=== PATIENT | male | born 1950 | race Caucasian/White ===

== ENCOUNTER 2023-07-17 12:20 | Inpatient (IN) | payer MEDICARE, MEDICAID ==
[2023-07-17] MEDS ORDERED: Psyllium with Sucrose Powder 3.4 GM Packet PO PRN (17:00)
[2023-07-17 17:11] LABS: APPEARANCE,URINE SLIGHTLY CLOUDY (CLEAR); BILIRUBIN,URINE NEGATIVE (NEGATIVE); GLUCOSE,URINE NEGATIVE (NEGATIVE); KETONES,URINE NEGATIVE (NEGATIVE); LEUKOCYTE ESTERASE,URINE LARGE (NEGATIVE); NITRITE,URINE NEGATIVE (NEGATIVE); OCCULT BLOOD,URINE TRACE-INTACT (NEGATIVE); PROTEIN,URINE TRACE mg/dL (NEGATIVE); UROBILINOGEN,URINE 0.2 E.U./dL (0.2-1.0)
[2023-07-17 17:13] LABS: COLOR,URINE YELLOW
[2023-07-17 17:14] LABS: RBC,URINE >100 /HPF; WBC,URINE >100 /HPF
[2023-07-17] MEDS ORDERED: 50% Dextrose in Water 50 ML Syringe IVPUSH PRN (17:58)
[2023-07-17] MEDS ORDERED: Glucagon,Human Recombinant 1 MG Vial IM PRN (17:58)
[2023-07-17] MEDS ORDERED: Zinc Oxide 20% Oint 56.7 GM Tube TOP PRN (18:00)
[2023-07-17] MEDS ORDERED: CALAZIME PASTE TOP PRN (18:11)
[2023-07-17] MEDS ORDERED: ZINC OXIDE 20% TOP PRN (18:13)
[2023-07-17] MEDS ORDERED: [UNRECOGNIZED DRUG - OTHER] TOP PRN (18:15)
[2023-07-17] MEDS: metFORMIN 500 MG Tab PO SCH (18:33)
[2023-07-17] MEDS: Acetaminophen/HYDROcodone 325-5 MG Tab PO PRN (18:34)
[2023-07-17] MEDS: Tamsulosin 0.4 MG Cap.ER PO SCH (20:05)
[2023-07-17] MEDS: Calcium Carbonate/Vitamin D3 600 MG-200 Units Tab PO SCH (20:05)
[2023-07-17] MEDS: rOPINIRole 0.25 MG Tab PO SCH (20:05)
[2023-07-17] MEDS: Pregabalin 75 MG Cap PO SCH (20:06)
[2023-07-17] MEDS: atorvaSTATin 40 MG Tab PO SCH (20:08)
[2023-07-17] MEDS: Insulin Glargine,Human Rec. Analog 100 Units/ML 3 ML Pen SUBCUT SCH (20:10)
[2023-07-17] MEDS: SODIUM HYPOCHLORITE 0.25% TOP PRN (21:00)
[2023-07-18] MEDS: Aspirin 81 MG Tab.EC PO SCH (07:57)
[2023-07-18] MEDS: Metoprolol Succinate 50 MG Tab.ER PO SCH (07:58)
[2023-07-18] MEDS: Magnesium Oxide 400 MG Tab PO SCH (07:58)
[2023-07-18] MEDS: Acetaminophen/HYDROcodone 325-5 MG Tab PO PRN ×2 (07:58→22:06)
[2023-07-18] MEDS: Pregabalin 75 MG Cap PO SCH ×2 (07:59→20:18)
[2023-07-18] MEDS: Docusate Sodium 100 MG Cap PO SCH (07:59)
[2023-07-18] MEDS: Calcium Carbonate/Vitamin D3 600 MG-200 Units Tab PO SCH ×2 (08:00→20:19)
[2023-07-18] MEDS: Ascorbic Acid 500 MG Tab PO SCH (08:00)
[2023-07-18] MEDS: metFORMIN 500 MG Tab PO SCH ×2 (08:00→17:14)
[2023-07-18] MEDS: Multivitamins with Iron/Calcium/Folic Acid/Minerals Tab PO SCH (08:00)
[2023-07-18] MEDS: Chlorthalidone 25 MG Tab PO SCH (08:52)
[2023-07-18] MEDS: CALCIUM PO SCH (08:52)
[2023-07-18] MEDS: CRANBERRY FRUIT PO SCH (08:52)
[2023-07-18] MEDS ORDERED: Cyanocobalamin (Vitamin B12) 1,000 MCG/ML SDV IM SCH (11:00)
[2023-07-18] MEDS: Insulin Glargine,Human Rec. Analog 100 Units/ML 3 ML Pen SUBCUT SCH (20:10)
[2023-07-18] MEDS: Tamsulosin 0.4 MG Cap.ER PO SCH (20:17)
[2023-07-18] MEDS: atorvaSTATin 40 MG Tab PO SCH (20:17)
[2023-07-18] MEDS: rOPINIRole 0.25 MG Tab PO SCH (20:18)
[2023-07-19] MEDS: Aspirin 81 MG Tab.EC PO SCH (08:07)
[2023-07-19] MEDS: Docusate Sodium 100 MG Cap PO SCH (08:07)
[2023-07-19] MEDS: Metoprolol Succinate 50 MG Tab.ER PO SCH (08:08)
[2023-07-19] MEDS: metFORMIN 500 MG Tab PO SCH ×2 (08:08→16:53)
[2023-07-19] MEDS: Multivitamins with Iron/Calcium/Folic Acid/Minerals Tab PO SCH (08:08)
[2023-07-19] MEDS: Pregabalin 75 MG Cap PO SCH ×2 (08:09→20:07)
[2023-07-19] MEDS: Magnesium Oxide 400 MG Tab PO SCH (08:09)
[2023-07-19] MEDS: Calcium Carbonate/Vitamin D3 600 MG-200 Units Tab PO SCH ×2 (08:09→20:09)
[2023-07-19] MEDS: Ascorbic Acid 500 MG Tab PO SCH (08:09)
[2023-07-19] MEDS: CALCIUM PO SCH (08:09)
[2023-07-19] MEDS: CRANBERRY FRUIT PO SCH (08:09)
[2023-07-19] MEDS: Chlorthalidone 25 MG Tab PO SCH (08:10)
[2023-07-19] MEDS: atorvaSTATin 40 MG Tab PO SCH (20:07)
[2023-07-19] MEDS: rOPINIRole 0.25 MG Tab PO SCH (20:08)
[2023-07-19] MEDS: Insulin Glargine,Human Rec. Analog 100 Units/ML 3 ML Pen SUBCUT SCH (20:08)
[2023-07-19] MEDS: Tamsulosin 0.4 MG Cap.ER PO SCH (20:08)
[2023-07-19] MEDS: Acetaminophen/HYDROcodone 325-5 MG Tab PO PRN (20:12)
[2023-07-19] MEDS: SODIUM HYPOCHLORITE 0.25% TOP PRN (20:13)
[2023-07-20] MEDS: Aspirin 81 MG Tab.EC PO SCH (08:16)
[2023-07-20] MEDS: Docusate Sodium 100 MG Cap PO SCH (08:16)
[2023-07-20] MEDS: Calcium Carbonate/Vitamin D3 600 MG-200 Units Tab PO SCH ×2 (08:17→19:59)
[2023-07-20] MEDS: Metoprolol Succinate 50 MG Tab.ER PO SCH (08:17)
[2023-07-20] MEDS: metFORMIN 500 MG Tab PO SCH ×2 (08:17→16:51)
[2023-07-20] MEDS: Multivitamins with Iron/Calcium/Folic Acid/Minerals Tab PO SCH (08:18)
[2023-07-20] MEDS: Pregabalin 75 MG Cap PO SCH ×2 (08:18→19:59)
[2023-07-20] MEDS: Ascorbic Acid 500 MG Tab PO SCH (08:18)
[2023-07-20] MEDS: Magnesium Oxide 400 MG Tab PO SCH (08:18)
[2023-07-20] MEDS: CRANBERRY FRUIT PO SCH (08:23)
[2023-07-20] MEDS: Chlorthalidone 25 MG Tab PO SCH (08:23)
[2023-07-20] MEDS: CALCIUM PO SCH (08:23)
[2023-07-20] MEDS: Acetaminophen/HYDROcodone 325-5 MG Tab PO PRN ×2 (09:19→19:58)
[2023-07-20] MEDS: rOPINIRole 0.25 MG Tab PO SCH (19:58)
[2023-07-20] MEDS: Tamsulosin 0.4 MG Cap.ER PO SCH (19:58)
[2023-07-20] MEDS: atorvaSTATin 40 MG Tab PO SCH (19:59)
[2023-07-20] MEDS: Insulin Glargine,Human Rec. Analog 100 Units/ML 3 ML Pen SUBCUT SCH (20:00)
[2023-07-20] MEDS: SODIUM HYPOCHLORITE 0.25% TOP PRN (21:17)
[2023-07-21] MEDS: Aspirin 81 MG Tab.EC PO SCH (07:39)
[2023-07-21] MEDS: Magnesium Oxide 400 MG Tab PO SCH (07:39)
[2023-07-21] MEDS: Docusate Sodium 100 MG Cap PO SCH (07:39)
[2023-07-21] MEDS: Multivitamins with Iron/Calcium/Folic Acid/Minerals Tab PO SCH (07:39)
[2023-07-21] MEDS: metFORMIN 500 MG Tab PO SCH ×2 (07:40→16:41)
[2023-07-21] MEDS: Ascorbic Acid 500 MG Tab PO SCH (07:40)
[2023-07-21] MEDS: Calcium Carbonate/Vitamin D3 600 MG-200 Units Tab PO SCH ×2 (07:40→20:19)
[2023-07-21] MEDS: CALCIUM PO SCH (07:41)
[2023-07-21] MEDS: Metoprolol Succinate 50 MG Tab.ER PO SCH (07:41)
[2023-07-21] MEDS: Chlorthalidone 25 MG Tab PO SCH (07:41)
[2023-07-21] MEDS: CRANBERRY FRUIT PO SCH (07:41)
[2023-07-21] MEDS: Pregabalin 75 MG Cap PO SCH ×2 (07:41→20:18)
[2023-07-21] MEDS: Acetaminophen/HYDROcodone 325-5 MG Tab PO PRN ×2 (10:08→20:21)
[2023-07-21] MEDS: Tamsulosin 0.4 MG Cap.ER PO SCH (20:17)
[2023-07-21] MEDS: rOPINIRole 0.25 MG Tab PO SCH (20:17)
[2023-07-21] MEDS: atorvaSTATin 40 MG Tab PO SCH (20:18)
[2023-07-21] MEDS: Insulin Glargine,Human Rec. Analog 100 Units/ML 3 ML Pen SUBCUT SCH (20:19)
[2023-07-21] MEDS: SODIUM HYPOCHLORITE 0.25% TOP PRN (22:23)
[2023-07-22] MEDS: Docusate Sodium 100 MG Cap PO SCH (07:59)
[2023-07-22] MEDS: metFORMIN 500 MG Tab PO SCH ×2 (07:59→17:14)
[2023-07-22] MEDS: Aspirin 81 MG Tab.EC PO SCH (07:59)
[2023-07-22] MEDS: Pregabalin 75 MG Cap PO SCH ×2 (07:59→20:05)
[2023-07-22] MEDS: Metoprolol Succinate 50 MG Tab.ER PO SCH (07:59)
[2023-07-22] MEDS: Calcium Carbonate/Vitamin D3 600 MG-200 Units Tab PO SCH ×2 (07:59→20:04)
[2023-07-22] MEDS: Ascorbic Acid 500 MG Tab PO SCH (08:00)
[2023-07-22] MEDS: Magnesium Oxide 400 MG Tab PO SCH (08:00)
[2023-07-22] MEDS: Multivitamins with Iron/Calcium/Folic Acid/Minerals Tab PO SCH (08:00)
[2023-07-22] MEDS: CALCIUM PO SCH (08:02)
[2023-07-22] MEDS: CRANBERRY FRUIT PO SCH (08:02)
[2023-07-22] MEDS: Chlorthalidone 25 MG Tab PO SCH (08:02)
[2023-07-22] MEDS: Acetaminophen/HYDROcodone 325-5 MG Tab PO PRN (09:41)
[2023-07-22] MEDS ORDERED: Ciprofloxacin 500 MG Tab PO SCH (12:15)
[2023-07-22] MEDS: Cephalexin 500 MG Cap PO SCH ×2 (12:53→20:05)
[2023-07-22] MEDS: atorvaSTATin 40 MG Tab PO SCH (20:00)
[2023-07-22] MEDS: Tamsulosin 0.4 MG Cap.ER PO SCH (20:04)
[2023-07-22] MEDS: rOPINIRole 0.25 MG Tab PO SCH (20:04)
[2023-07-22] MEDS: Insulin Glargine,Human Rec. Analog 100 Units/ML 3 ML Pen SUBCUT SCH (20:06)
[2023-07-23] MEDS: Calcium Carbonate/Vitamin D3 600 MG-200 Units Tab PO SCH ×2 (09:15→19:42)
[2023-07-23] MEDS: Lactobacillus Acidophilus/Lactobacillus Sporogenes (Probiotic) Tab PO SCH (09:15)
[2023-07-23] MEDS: Cephalexin 500 MG Cap PO SCH ×2 (09:16→19:41)
[2023-07-23] MEDS: Docusate Sodium 100 MG Cap PO SCH (09:16)
[2023-07-23] MEDS: metFORMIN 500 MG Tab PO SCH ×2 (09:16→17:24)
[2023-07-23] MEDS: Chlorthalidone 25 MG Tab PO SCH (09:16)
[2023-07-23] MEDS: Aspirin 81 MG Tab.EC PO SCH (09:16)
[2023-07-23] MEDS: Pregabalin 75 MG Cap PO SCH ×2 (09:17→19:42)
[2023-07-23] MEDS: Metoprolol Succinate 50 MG Tab.ER PO SCH (09:17)
[2023-07-23] MEDS: Magnesium Oxide 400 MG Tab PO SCH (09:17)
[2023-07-23] MEDS: Ascorbic Acid 500 MG Tab PO SCH (09:17)
[2023-07-23] MEDS: Multivitamins with Iron/Calcium/Folic Acid/Minerals Tab PO SCH (09:17)
[2023-07-23] MEDS: Insulin Glargine,Human Rec. Analog 100 Units/ML 3 ML Pen SUBCUT SCH (19:37)
[2023-07-23] MEDS: rOPINIRole 0.25 MG Tab PO SCH (19:41)
[2023-07-23] MEDS: Tamsulosin 0.4 MG Cap.ER PO SCH (19:42)
[2023-07-23] MEDS: atorvaSTATin 40 MG Tab PO SCH (19:42)
[2023-07-23] MEDS: Acetaminophen/HYDROcodone 325-5 MG Tab PO PRN (19:44)
[2023-07-23] MEDS: SODIUM HYPOCHLORITE 0.25% TOP PRN (22:22)
[2023-07-24] MEDS: Chlorthalidone 25 MG Tab PO SCH (08:25)
[2023-07-24] MEDS: Multivitamins with Iron/Calcium/Folic Acid/Minerals Tab PO SCH (08:25)
[2023-07-24] MEDS: Docusate Sodium 100 MG Cap PO SCH (08:25)
[2023-07-24] MEDS: Metoprolol Succinate 50 MG Tab.ER PO SCH (08:25)
[2023-07-24] MEDS: metFORMIN 500 MG Tab PO SCH ×2 (08:26→17:45)
[2023-07-24] MEDS: Aspirin 81 MG Tab.EC PO SCH (08:26)
[2023-07-24] MEDS: Calcium Carbonate/Vitamin D3 600 MG-200 Units Tab PO SCH ×2 (08:27→20:22)
[2023-07-24] MEDS: Magnesium Oxide 400 MG Tab PO SCH (08:27)
[2023-07-24] MEDS: Ascorbic Acid 500 MG Tab PO SCH (08:27)
[2023-07-24] MEDS: Pregabalin 75 MG Cap PO SCH ×2 (08:27→20:23)
[2023-07-24] MEDS: Lactobacillus Acidophilus/Lactobacillus Sporogenes (Probiotic) Tab PO SCH (08:28)
[2023-07-24] MEDS: Cephalexin 500 MG Cap PO SCH (08:28)
[2023-07-24] MEDS: Acetaminophen/HYDROcodone 325-5 MG Tab PO PRN ×2 (08:30→20:23)
[2023-07-24] MEDS: Amoxicillin 500 MG Cap PO SCH ×2 (14:20→20:23)
[2023-07-24] MEDS ORDERED: Ciprofloxacin 250 MG Tab PO SCH (20:00)
[2023-07-24] MEDS: atorvaSTATin 40 MG Tab PO SCH (20:22)
[2023-07-24] MEDS: Tamsulosin 0.4 MG Cap.ER PO SCH (20:23)
[2023-07-24] MEDS: rOPINIRole 0.25 MG Tab PO SCH (20:23)
[2023-07-24] MEDS: Insulin Glargine,Human Rec. Analog 100 Units/ML 3 ML Pen SUBCUT SCH (20:24)
[2023-07-25] MEDS: Ascorbic Acid 500 MG Tab PO SCH (08:01)
[2023-07-25] MEDS: Multivitamins with Iron/Calcium/Folic Acid/Minerals Tab PO SCH (08:02)
[2023-07-25] MEDS: Amoxicillin 500 MG Cap PO SCH ×3 (08:02→20:31)
[2023-07-25] MEDS: Pregabalin 75 MG Cap PO SCH ×2 (08:02→20:31)
[2023-07-25] MEDS: Chlorthalidone 25 MG Tab PO SCH (08:03)
[2023-07-25] MEDS: Calcium Carbonate/Vitamin D3 600 MG-200 Units Tab PO SCH ×2 (08:03→20:43)
[2023-07-25] MEDS: Metoprolol Succinate 50 MG Tab.ER PO SCH (08:03)
[2023-07-25] MEDS: metFORMIN 500 MG Tab PO SCH ×2 (08:04→17:31)
[2023-07-25] MEDS: Lactobacillus Acidophilus/Lactobacillus Sporogenes (Probiotic) Tab PO SCH (08:04)
[2023-07-25] MEDS: Docusate Sodium 100 MG Cap PO SCH (08:05)
[2023-07-25] MEDS: Aspirin 81 MG Tab.EC PO SCH (08:05)
[2023-07-25] MEDS: Magnesium Oxide 400 MG Tab PO SCH (08:05)
[2023-07-25] MEDS ORDERED: Menthol/Zinc Oxide Ointment 113 GM Tube TOP ONE (15:05)
[2023-07-25] MEDS: Tamsulosin 0.4 MG Cap.ER PO SCH (20:30)
[2023-07-25] MEDS: atorvaSTATin 40 MG Tab PO SCH (20:31)
[2023-07-25] MEDS: rOPINIRole 0.25 MG Tab PO SCH (20:31)
[2023-07-25] MEDS: Acetaminophen/HYDROcodone 325-5 MG Tab PO PRN (20:33)
[2023-07-25] MEDS: Insulin Glargine,Human Rec. Analog 100 Units/ML 3 ML Pen SUBCUT SCH (20:39)
[2023-07-26] MEDS: Acetaminophen/HYDROcodone 325-5 MG Tab PO PRN ×2 (09:00→17:01)
[2023-07-26] MEDS: Calcium Carbonate/Vitamin D3 600 MG-200 Units Tab PO SCH (09:41)
[2023-07-26] MEDS: Aspirin 81 MG Tab.EC PO SCH (09:41)
[2023-07-26] MEDS: Pregabalin 75 MG Cap PO SCH ×2 (09:42→21:15)
[2023-07-26] MEDS: Chlorthalidone 25 MG Tab PO SCH (09:42)
[2023-07-26] MEDS: Magnesium Oxide 400 MG Tab PO SCH (09:42)
[2023-07-26] MEDS: Multivitamins with Iron/Calcium/Folic Acid/Minerals Tab PO SCH (09:42)
[2023-07-26] MEDS: metFORMIN 500 MG Tab PO SCH ×2 (09:42→17:07)
[2023-07-26] MEDS: Metoprolol Succinate 50 MG Tab.ER PO SCH (09:42)
[2023-07-26] MEDS: Lactobacillus Acidophilus/Lactobacillus Sporogenes (Probiotic) Tab PO SCH (09:42)
[2023-07-26] MEDS: Docusate Sodium 100 MG Cap PO SCH (09:42)
[2023-07-26] MEDS: Amoxicillin 500 MG Cap PO SCH ×3 (09:42→21:21)
[2023-07-26] MEDS: Ascorbic Acid 500 MG Tab PO SCH (09:43)
[2023-07-26 10:13] LABS: HEMATOCRIT 28.4 % (40.0-54.0); HEMOGLOBIN 8.7 g/dL (13.0-18.0); MEAN CORPUSCULAR HEMOGLOBIN 24.4 pg (27.0-32.0); MEAN CORPUSCULAR HGB CONC 30.6 g/dL (31.0-35.0); MEAN CORPUSCULAR VOLUME 80 fL (76-96); PLATELET COUNT,PLT 203 K/uL (150-400); RED BLOOD CELL COUNT 3.57 M/uL (4.50-6.50); WHITE BLOOD CELL COUNT,WBC 6.9 K/uL (4.0-11.0)
[2023-07-26 10:27] LABS: ANION GAP 12.4 mmol/L (5.0-15.0); BUN/CREATININE RATIO 21.2 (6-25); CALCIUM 9.1 mg/dL (8.5-10.1); CARBON DIOXIDE,CO2 29.2 mmol/L (21.0-32.0); CREATININE 1.32 mg/dL (0.70-1.30); EST CRCL DRUG DOSING (CG) 58.81 mL/min; POTASSIUM,K 4.6 mmol/L (3.5-5.1)
[2023-07-26] MEDS: SODIUM HYPOCHLORITE 0.25% TOP PRN (17:01)
[2023-07-26] MEDS: Insulin Glargine,Human Rec. Analog 100 Units/ML 3 ML Pen SUBCUT SCH (21:12)
[2023-07-26] MEDS: Calcium Carbonate/Vitamin D3 1500 MG-400 Units Tab PO SCH (21:14)
[2023-07-26] MEDS: Tamsulosin 0.4 MG Cap.ER PO SCH (21:14)
[2023-07-26] MEDS: rOPINIRole 0.25 MG Tab PO SCH (21:14)
[2023-07-26] MEDS: atorvaSTATin 40 MG Tab PO SCH (21:15)
[2023-07-27] MEDS: Lactobacillus Acidophilus/Lactobacillus Sporogenes (Probiotic) Tab PO SCH (07:29)
[2023-07-27] MEDS: Amoxicillin 500 MG Cap PO SCH ×3 (07:29→20:00)
[2023-07-27] MEDS: Aspirin 81 MG Tab.EC PO SCH (07:30)
[2023-07-27] MEDS: metFORMIN 500 MG Tab PO SCH ×2 (07:30→18:00)
[2023-07-27] MEDS: Magnesium Oxide 400 MG Tab PO SCH (07:30)
[2023-07-27] MEDS: Calcium Carbonate/Vitamin D3 1500 MG-400 Units Tab PO SCH ×2 (07:30→20:00)
[2023-07-27] MEDS: Pregabalin 75 MG Cap PO SCH ×2 (07:30→20:00)
[2023-07-27] MEDS: Docusate Sodium 100 MG Cap PO SCH (07:30)
[2023-07-27] MEDS: Chlorthalidone 25 MG Tab PO SCH (07:30)
[2023-07-27] MEDS: Multivitamins with Iron/Calcium/Folic Acid/Minerals Tab PO SCH (07:31)
[2023-07-27] MEDS: Ascorbic Acid 500 MG Tab PO SCH (07:31)
[2023-07-27] MEDS: Metoprolol Succinate 50 MG Tab.ER PO SCH (07:43)
[2023-07-27] MEDS: SODIUM HYPOCHLORITE 0.25% TOP PRN (12:59)
[2023-07-27] MEDS: Insulin Glargine,Human Rec. Analog 100 Units/ML 3 ML Pen SUBCUT SCH (19:58)
[2023-07-27] MEDS: Tamsulosin 0.4 MG Cap.ER PO SCH (19:59)
[2023-07-27] MEDS: rOPINIRole 0.25 MG Tab PO SCH (19:59)
[2023-07-27] MEDS: atorvaSTATin 40 MG Tab PO SCH (20:00)
[2023-07-28] MEDS: Aspirin 81 MG Tab.EC PO SCH (08:00)
[2023-07-28] MEDS: Amoxicillin 500 MG Cap PO SCH ×3 (08:44→20:52)
[2023-07-28] MEDS: Magnesium Oxide 400 MG Tab PO SCH (08:45)
[2023-07-28] MEDS: Calcium Carbonate/Vitamin D3 1500 MG-400 Units Tab PO SCH ×2 (08:45→20:52)
[2023-07-28] MEDS: Docusate Sodium 100 MG Cap PO SCH (08:45)
[2023-07-28] MEDS: metFORMIN 500 MG Tab PO SCH ×2 (08:47→17:19)
[2023-07-28] MEDS: Metoprolol Succinate 50 MG Tab.ER PO SCH (08:48)
[2023-07-28] MEDS: Ascorbic Acid 500 MG Tab PO SCH (08:49)
[2023-07-28] MEDS: Pregabalin 75 MG Cap PO SCH ×2 (08:50→20:52)
[2023-07-28] MEDS: Lactobacillus Acidophilus/Lactobacillus Sporogenes (Probiotic) Tab PO SCH (08:50)
[2023-07-28] MEDS: Multivitamins with Iron/Calcium/Folic Acid/Minerals Tab PO SCH (08:50)
[2023-07-28] MEDS: Chlorthalidone 25 MG Tab PO SCH (08:51)
[2023-07-28] MEDS: Acetaminophen/HYDROcodone 325-5 MG Tab PO PRN (13:46)
[2023-07-28] MEDS: atorvaSTATin 40 MG Tab PO SCH (20:51)
[2023-07-28] MEDS: rOPINIRole 0.25 MG Tab PO SCH (20:51)
[2023-07-28] MEDS: Tamsulosin 0.4 MG Cap.ER PO SCH (20:52)
[2023-07-28] MEDS: Insulin Glargine,Human Rec. Analog 100 Units/ML 3 ML Pen SUBCUT SCH (20:54)
[2023-07-29] MEDS: Calcium Carbonate/Vitamin D3 1500 MG-400 Units Tab PO SCH ×2 (07:38→20:27)
[2023-07-29] MEDS: Amoxicillin 500 MG Cap PO SCH ×3 (07:38→20:26)
[2023-07-29] MEDS: Aspirin 81 MG Tab.EC PO SCH (07:38)
[2023-07-29] MEDS: Chlorthalidone 25 MG Tab PO SCH (07:38)
[2023-07-29] MEDS: Pregabalin 75 MG Cap PO SCH ×2 (07:38→20:27)
[2023-07-29] MEDS: metFORMIN 500 MG Tab PO SCH ×2 (07:38→17:18)
[2023-07-29] MEDS: Lactobacillus Acidophilus/Lactobacillus Sporogenes (Probiotic) Tab PO SCH (07:38)
[2023-07-29] MEDS: Ascorbic Acid 500 MG Tab PO SCH (07:38)
[2023-07-29] MEDS: Metoprolol Succinate 50 MG Tab.ER PO SCH (07:38)
[2023-07-29] MEDS: Multivitamins with Iron/Calcium/Folic Acid/Minerals Tab PO SCH (07:39)
[2023-07-29] MEDS: Magnesium Oxide 400 MG Tab PO SCH (07:39)
[2023-07-29] MEDS: Docusate Sodium 100 MG Cap PO SCH (07:39)
[2023-07-29] MEDS: Polyethylene Glycol 3350 Powder 17 GM Packet PO PRN (10:43)
[2023-07-29] MEDS: Acetaminophen/HYDROcodone 325-5 MG Tab PO PRN (18:15)
[2023-07-29] MEDS: Tamsulosin 0.4 MG Cap.ER PO SCH (20:26)
[2023-07-29] MEDS: rOPINIRole 0.25 MG Tab PO SCH (20:26)
[2023-07-29] MEDS: atorvaSTATin 40 MG Tab PO SCH (20:26)
[2023-07-29] MEDS: Insulin Glargine,Human Rec. Analog 100 Units/ML 3 ML Pen SUBCUT SCH (20:28)
[2023-07-30] MEDS: Aspirin 81 MG Tab.EC PO SCH (08:45)
[2023-07-30] MEDS: metFORMIN 500 MG Tab PO SCH ×2 (08:45→16:47)
[2023-07-30] MEDS: Docusate Sodium 100 MG Cap PO SCH (08:45)
[2023-07-30] MEDS: Calcium Carbonate/Vitamin D3 1500 MG-400 Units Tab PO SCH ×2 (08:45→19:09)
[2023-07-30] MEDS: Ascorbic Acid 500 MG Tab PO SCH (08:45)
[2023-07-30] MEDS: Magnesium Oxide 400 MG Tab PO SCH (08:45)
[2023-07-30] MEDS: Pregabalin 75 MG Cap PO SCH ×2 (08:46→19:09)
[2023-07-30] MEDS: Lactobacillus Acidophilus/Lactobacillus Sporogenes (Probiotic) Tab PO SCH (08:47)
[2023-07-30] MEDS: Metoprolol Succinate 50 MG Tab.ER PO SCH (08:47)
[2023-07-30] MEDS: Multivitamins with Iron/Calcium/Folic Acid/Minerals Tab PO SCH (08:47)
[2023-07-30] MEDS: Chlorthalidone 25 MG Tab PO SCH (08:48)
[2023-07-30] MEDS: Acetaminophen/HYDROcodone 325-5 MG Tab PO PRN ×2 (11:45→19:10)
[2023-07-30] MEDS: Levofloxacin 500 MG Tab PO SCH (15:19)
[2023-07-30] MEDS ORDERED: Doxycycline 100 MG Cap PO ONE (15:20)
[2023-07-30] MEDS: Tamsulosin 0.4 MG Cap.ER PO SCH (19:09)
[2023-07-30] MEDS: Doxycycline 100 MG Cap PO SCH (19:09)
[2023-07-30] MEDS: atorvaSTATin 40 MG Tab PO SCH (19:09)
[2023-07-30] MEDS: rOPINIRole 0.25 MG Tab PO SCH (19:09)
[2023-07-30] MEDS: Insulin Glargine,Human Rec. Analog 100 Units/ML 3 ML Pen SUBCUT SCH (19:12)
[2023-07-31] MEDS: Lactobacillus Acidophilus/Lactobacillus Sporogenes (Probiotic) Tab PO SCH (07:41)
[2023-07-31] MEDS: Magnesium Oxide 400 MG Tab PO SCH (07:41)
[2023-07-31] MEDS: Docusate Sodium 100 MG Cap PO SCH (07:41)
[2023-07-31] MEDS: Aspirin 81 MG Tab.EC PO SCH (07:42)
[2023-07-31] MEDS: Metoprolol Succinate 50 MG Tab.ER PO SCH (07:42)
[2023-07-31] MEDS: Ascorbic Acid 500 MG Tab PO SCH (07:42)
[2023-07-31] MEDS: metFORMIN 500 MG Tab PO SCH ×2 (07:43→17:53)
[2023-07-31] MEDS: Chlorthalidone 25 MG Tab PO SCH (07:43)
[2023-07-31] MEDS: Calcium Carbonate/Vitamin D3 1500 MG-400 Units Tab PO SCH ×2 (07:44→19:48)
[2023-07-31] MEDS: Multivitamins with Iron/Calcium/Folic Acid/Minerals Tab PO SCH (07:44)
[2023-07-31] MEDS: Doxycycline 100 MG Cap PO SCH ×2 (07:44→19:48)
[2023-07-31] MEDS: Pregabalin 75 MG Cap PO SCH ×2 (07:44→19:49)
[2023-07-31] MEDS: Levofloxacin 500 MG Tab PO SCH (14:24)
[2023-07-31] MEDS: Acetaminophen/HYDROcodone 325-5 MG Tab PO PRN ×2 (15:03→19:49)
[2023-07-31] MEDS: Insulin Glargine,Human Rec. Analog 100 Units/ML 3 ML Pen SUBCUT SCH (19:46)
[2023-07-31] MEDS: Tamsulosin 0.4 MG Cap.ER PO SCH (19:47)
[2023-07-31] MEDS: rOPINIRole 0.25 MG Tab PO SCH (19:47)
[2023-07-31] MEDS: atorvaSTATin 40 MG Tab PO SCH (19:48)
[2023-08-01] MEDS: Ascorbic Acid 500 MG Tab PO SCH (07:20)
[2023-08-01] MEDS: Calcium Carbonate/Vitamin D3 1500 MG-400 Units Tab PO SCH ×2 (07:20→19:45)
[2023-08-01] MEDS: Aspirin 81 MG Tab.EC PO SCH (07:20)
[2023-08-01] MEDS: Docusate Sodium 100 MG Cap PO SCH (07:20)
[2023-08-01] MEDS: Metoprolol Succinate 50 MG Tab.ER PO SCH (07:21)
[2023-08-01] MEDS: Magnesium Oxide 400 MG Tab PO SCH (07:21)
[2023-08-01] MEDS: Lactobacillus Acidophilus/Lactobacillus Sporogenes (Probiotic) Tab PO SCH (07:21)
[2023-08-01] MEDS: metFORMIN 500 MG Tab PO SCH ×2 (07:22→17:16)
[2023-08-01] MEDS: Pregabalin 75 MG Cap PO SCH ×2 (07:22→19:45)
[2023-08-01] MEDS: Multivitamins with Iron/Calcium/Folic Acid/Minerals Tab PO SCH (07:22)
[2023-08-01] MEDS: Doxycycline 100 MG Cap PO SCH ×2 (07:22→19:45)
[2023-08-01] MEDS: Chlorthalidone 25 MG Tab PO SCH (07:23)
[2023-08-01] MEDS: Acetaminophen/HYDROcodone 325-5 MG Tab PO PRN (14:57)
[2023-08-01] MEDS: Levofloxacin 500 MG Tab PO SCH (14:58)
[2023-08-01] MEDS: Tamsulosin 0.4 MG Cap.ER PO SCH (19:45)
[2023-08-01] MEDS: atorvaSTATin 40 MG Tab PO SCH (19:45)
[2023-08-01] MEDS: rOPINIRole 0.25 MG Tab PO SCH (19:45)
[2023-08-01] MEDS: Insulin Glargine,Human Rec. Analog 100 Units/ML 3 ML Pen SUBCUT SCH (19:47)
[2023-08-02] MEDS: Aspirin 81 MG Tab.EC PO SCH (08:14)
[2023-08-02] MEDS: Metoprolol Succinate 50 MG Tab.ER PO SCH (08:14)
[2023-08-02] MEDS: Docusate Sodium 100 MG Cap PO SCH (08:14)
[2023-08-02] MEDS: Calcium Carbonate/Vitamin D3 1500 MG-400 Units Tab PO SCH ×2 (08:15→20:17)
[2023-08-02] MEDS: Doxycycline 100 MG Cap PO SCH ×2 (08:15→20:17)
[2023-08-02] MEDS: Ascorbic Acid 500 MG Tab PO SCH (08:16)
[2023-08-02] MEDS: Magnesium Oxide 400 MG Tab PO SCH (08:16)
[2023-08-02] MEDS: metFORMIN 500 MG Tab PO SCH ×2 (08:16→17:09)
[2023-08-02] MEDS: Pregabalin 75 MG Cap PO SCH ×2 (08:16→20:17)
[2023-08-02] MEDS: Lactobacillus Acidophilus/Lactobacillus Sporogenes (Probiotic) Tab PO SCH (08:16)
[2023-08-02] MEDS: Chlorthalidone 25 MG Tab PO SCH (08:17)
[2023-08-02] MEDS: Multivitamins with Iron/Calcium/Folic Acid/Minerals Tab PO SCH (08:17)
[2023-08-02] MEDS: Cyanocobalamin (Vitamin B12) 1,000 MCG/ML SDV IM SCH (08:31)
[2023-08-02] MEDS: Levofloxacin 500 MG Tab PO SCH (13:44)
[2023-08-02] MEDS: Acetaminophen/HYDROcodone 325-5 MG Tab PO PRN (13:45)
[2023-08-02] MEDS: atorvaSTATin 40 MG Tab PO SCH (20:17)
[2023-08-02] MEDS: Insulin Glargine,Human Rec. Analog 100 Units/ML 3 ML Pen SUBCUT SCH (20:17)
[2023-08-02] MEDS: Tamsulosin 0.4 MG Cap.ER PO SCH (20:17)
[2023-08-02] MEDS: rOPINIRole 0.25 MG Tab PO SCH (20:17)
[2023-08-02] MEDS ORDERED: Ketorolac 30 MG/ML SDV ONE (22:53)
[2023-08-02] MEDS ORDERED: Ketorolac 30 MG/ML SDV IM ONE (22:55)
[2023-08-03] MEDS: Ascorbic Acid 500 MG Tab PO SCH (08:29)
[2023-08-03] MEDS: Magnesium Oxide 400 MG Tab PO SCH (08:30)
[2023-08-03] MEDS: Multivitamins with Iron/Calcium/Folic Acid/Minerals Tab PO SCH (08:31)
[2023-08-03] MEDS: Docusate Sodium 100 MG Cap PO SCH (08:31)
[2023-08-03] MEDS: Aspirin 81 MG Tab.EC PO SCH (08:31)
[2023-08-03] MEDS: metFORMIN 500 MG Tab PO SCH ×2 (08:32→17:04)
[2023-08-03] MEDS: Metoprolol Succinate 50 MG Tab.ER PO SCH (08:33)
[2023-08-03] MEDS: Lactobacillus Acidophilus/Lactobacillus Sporogenes (Probiotic) Tab PO SCH (08:33)
[2023-08-03] MEDS: Pregabalin 75 MG Cap PO SCH ×2 (08:34→20:40)
[2023-08-03] MEDS: Chlorthalidone 25 MG Tab PO SCH (08:34)
[2023-08-03] MEDS: Doxycycline 100 MG Cap PO SCH ×2 (08:34→20:40)
[2023-08-03] MEDS: Calcium Carbonate/Vitamin D3 1500 MG-400 Units Tab PO SCH ×2 (08:34→20:41)
[2023-08-03] MEDS: Polyethylene Glycol 3350 Powder 17 GM Packet PO PRN (08:56)
[2023-08-03] MEDS: Acetaminophen/HYDROcodone 325-5 MG Tab PO PRN ×2 (13:24→20:39)
[2023-08-03] MEDS: Levofloxacin 500 MG Tab PO SCH (13:54)
[2023-08-03] MEDS ORDERED: Docusate Sodium 100 MG Cap PO PRN (16:00)
[2023-08-03] MEDS: rOPINIRole 0.25 MG Tab PO SCH (20:40)
[2023-08-03] MEDS: Tamsulosin 0.4 MG Cap.ER PO SCH (20:40)
[2023-08-03] MEDS: atorvaSTATin 40 MG Tab PO SCH (20:41)
[2023-08-03] MEDS: Insulin Glargine,Human Rec. Analog 100 Units/ML 3 ML Pen SUBCUT SCH (20:41)
[2023-08-04] MEDS: Multivitamins with Iron/Calcium/Folic Acid/Minerals Tab PO SCH (08:47)
[2023-08-04] MEDS: Lactobacillus Acidophilus/Lactobacillus Sporogenes (Probiotic) Tab PO SCH (08:47)
[2023-08-04] MEDS: metFORMIN 500 MG Tab PO SCH ×2 (08:47→17:07)
[2023-08-04] MEDS: Pregabalin 75 MG Cap PO SCH ×2 (08:48→20:40)
[2023-08-04] MEDS: Ascorbic Acid 500 MG Tab PO SCH (08:48)
[2023-08-04] MEDS: Magnesium Oxide 400 MG Tab PO SCH (08:48)
[2023-08-04] MEDS: Aspirin 81 MG Tab.EC PO SCH (08:48)
[2023-08-04] MEDS: Calcium Carbonate/Vitamin D3 1500 MG-400 Units Tab PO SCH ×2 (08:48→20:40)
[2023-08-04] MEDS: Doxycycline 100 MG Cap PO SCH ×2 (08:49→20:40)
[2023-08-04] MEDS: Polyethylene Glycol 3350 Powder 17 GM Packet PO SCH (08:49)
[2023-08-04] MEDS: Chlorthalidone 25 MG Tab PO SCH (08:50)
[2023-08-04] MEDS: Metoprolol Succinate 50 MG Tab.ER PO SCH (08:50)
[2023-08-04] MEDS: Acetaminophen/HYDROcodone 325-5 MG Tab PO PRN ×2 (14:34→20:40)
[2023-08-04] MEDS: Insulin Glargine,Human Rec. Analog 100 Units/ML 3 ML Pen SUBCUT SCH (20:40)
[2023-08-04] MEDS: Tamsulosin 0.4 MG Cap.ER PO SCH (20:40)
[2023-08-04] MEDS: rOPINIRole 0.25 MG Tab PO SCH (20:41)
[2023-08-04] MEDS: atorvaSTATin 40 MG Tab PO SCH (20:41)
[2023-08-05] MEDS: Lactobacillus Acidophilus/Lactobacillus Sporogenes (Probiotic) Tab PO SCH (07:19)
[2023-08-05] MEDS: Calcium Carbonate/Vitamin D3 1500 MG-400 Units Tab PO SCH ×2 (07:19→20:37)
[2023-08-05] MEDS: Chlorthalidone 25 MG Tab PO SCH (07:19)
[2023-08-05] MEDS: Aspirin 81 MG Tab.EC PO SCH (07:20)
[2023-08-05] MEDS: Ascorbic Acid 500 MG Tab PO SCH (07:20)
[2023-08-05] MEDS: Polyethylene Glycol 3350 Powder 17 GM Packet PO SCH (07:20)
[2023-08-05] MEDS: Multivitamins with Iron/Calcium/Folic Acid/Minerals Tab PO SCH (07:20)
[2023-08-05] MEDS: metFORMIN 500 MG Tab PO SCH ×2 (07:20→16:42)
[2023-08-05] MEDS: Pregabalin 75 MG Cap PO SCH ×2 (07:20→20:29)
[2023-08-05] MEDS: Magnesium Oxide 400 MG Tab PO SCH (07:20)
[2023-08-05] MEDS: Metoprolol Succinate 50 MG Tab.ER PO SCH (09:07)
[2023-08-05] MEDS: Acetaminophen/HYDROcodone 325-5 MG Tab PO PRN ×2 (09:53→20:29)
[2023-08-05] MEDS: Insulin Glargine,Human Rec. Analog 100 Units/ML 3 ML Pen SUBCUT SCH (20:28)
[2023-08-05] MEDS: Tamsulosin 0.4 MG Cap.ER PO SCH (20:29)
[2023-08-05] MEDS: rOPINIRole 0.25 MG Tab PO SCH (20:29)
[2023-08-05] MEDS: atorvaSTATin 40 MG Tab PO SCH (20:29)
[2023-08-06] MEDS: Lactobacillus Acidophilus/Lactobacillus Sporogenes (Probiotic) Tab PO SCH (07:57)
[2023-08-06] MEDS: Ascorbic Acid 500 MG Tab PO SCH (07:57)
[2023-08-06] MEDS: Calcium Carbonate/Vitamin D3 1500 MG-400 Units Tab PO SCH ×2 (07:57→20:53)
[2023-08-06] MEDS: Aspirin 81 MG Tab.EC PO SCH (07:57)
[2023-08-06] MEDS: Magnesium Oxide 400 MG Tab PO SCH (07:57)
[2023-08-06] MEDS: Metoprolol Succinate 50 MG Tab.ER PO SCH (07:58)
[2023-08-06] MEDS: metFORMIN 500 MG Tab PO SCH ×2 (07:58→17:19)
[2023-08-06] MEDS: Polyethylene Glycol 3350 Powder 17 GM Packet PO SCH (07:58)
[2023-08-06] MEDS: Chlorthalidone 25 MG Tab PO SCH (07:58)
[2023-08-06] MEDS: Pregabalin 75 MG Cap PO SCH ×2 (07:58→20:53)
[2023-08-06] MEDS: Multivitamins with Iron/Calcium/Folic Acid/Minerals Tab PO SCH (07:58)
[2023-08-06] MEDS: Acetaminophen/HYDROcodone 325-5 MG Tab PO PRN ×2 (12:17→20:53)
[2023-08-06] MEDS: Sennosides/Docusate Sodium 50-8.6 MG Tab PO SCH ×2 (15:19→20:53)
[2023-08-06] MEDS: atorvaSTATin 40 MG Tab PO SCH (20:53)
[2023-08-06] MEDS: Tamsulosin 0.4 MG Cap.ER PO SCH (20:53)
[2023-08-06] MEDS: rOPINIRole 0.25 MG Tab PO SCH (20:53)
[2023-08-06] MEDS: Insulin Glargine,Human Rec. Analog 100 Units/ML 3 ML Pen SUBCUT SCH (20:53)
[2023-08-07] MEDS: Calcium Carbonate/Vitamin D3 1500 MG-400 Units Tab PO SCH ×2 (07:43→20:10)
[2023-08-07] MEDS: Chlorthalidone 25 MG Tab PO SCH (07:43)
[2023-08-07] MEDS: Lactobacillus Acidophilus/Lactobacillus Sporogenes (Probiotic) Tab PO SCH (07:43)
[2023-08-07] MEDS: metFORMIN 500 MG Tab PO SCH ×2 (07:43→17:30)
[2023-08-07] MEDS: Aspirin 81 MG Tab.EC PO SCH (07:43)
[2023-08-07] MEDS: Ascorbic Acid 500 MG Tab PO SCH (07:44)
[2023-08-07] MEDS: Metoprolol Succinate 50 MG Tab.ER PO SCH (07:44)
[2023-08-07] MEDS: Multivitamins with Iron/Calcium/Folic Acid/Minerals Tab PO SCH (07:44)
[2023-08-07] MEDS: Magnesium Oxide 400 MG Tab PO SCH (07:44)
[2023-08-07] MEDS: Pregabalin 75 MG Cap PO SCH ×2 (07:44→20:10)
[2023-08-07] MEDS: Sennosides/Docusate Sodium 50-8.6 MG Tab PO SCH ×2 (07:44→20:10)
[2023-08-07] MEDS: Polyethylene Glycol 3350 Powder 17 GM Packet PO SCH (07:44)
[2023-08-07] MEDS: Acetaminophen/HYDROcodone 325-5 MG Tab PO PRN ×2 (10:12→20:10)
[2023-08-07] MEDS: Tamsulosin 0.4 MG Cap.ER PO SCH (20:10)
[2023-08-07] MEDS: atorvaSTATin 40 MG Tab PO SCH (20:10)
[2023-08-07] MEDS: rOPINIRole 0.25 MG Tab PO SCH (20:10)
[2023-08-07] MEDS: Insulin Glargine,Human Rec. Analog 100 Units/ML 3 ML Pen SUBCUT SCH (20:13)
[2023-08-08] MEDS: Lactobacillus Acidophilus/Lactobacillus Sporogenes (Probiotic) Tab PO SCH (07:52)
[2023-08-08] MEDS: Calcium Carbonate/Vitamin D3 1500 MG-400 Units Tab PO SCH ×2 (07:53→21:04)
[2023-08-08] MEDS: metFORMIN 500 MG Tab PO SCH ×2 (07:53→17:51)
[2023-08-08] MEDS: Magnesium Oxide 400 MG Tab PO SCH (07:54)
[2023-08-08] MEDS: Sennosides/Docusate Sodium 50-8.6 MG Tab PO SCH ×2 (07:54→21:03)
[2023-08-08] MEDS: Polyethylene Glycol 3350 Powder 17 GM Packet PO SCH (07:54)
[2023-08-08] MEDS: Aspirin 81 MG Tab.EC PO SCH (07:54)
[2023-08-08] MEDS: Multivitamins with Iron/Calcium/Folic Acid/Minerals Tab PO SCH (07:54)
[2023-08-08] MEDS: Pregabalin 75 MG Cap PO SCH ×2 (07:54→21:03)
[2023-08-08] MEDS: Ascorbic Acid 500 MG Tab PO SCH (07:54)
[2023-08-08] MEDS: Metoprolol Succinate 50 MG Tab.ER PO SCH (08:00)
[2023-08-08] MEDS: Chlorthalidone 25 MG Tab PO SCH (08:01)
[2023-08-08] MEDS: Acetaminophen/HYDROcodone 325-5 MG Tab PO PRN ×2 (09:47→21:03)
[2023-08-08 12:01] LABS: BASOPHILS ABSOLUTE AUTO 0.25 K/uL (0.02-0.10); BASOPHILS PERCENT AUTO 5.2 % (0.0-0.5); EOSINOPHILS ABSOLUTE AUTO 0.05 K/uL (0.04-0.40); HEMATOCRIT 27.5 % (40.0-54.0); LYMPHOCYTES ABSOLUTE AUTO 1.56 K/uL (1.50-4.00); LYMPHOCYTES PERCENT AUTO 32.2 % (20.0-40.0); MEAN CORPUSCULAR HEMOGLOBIN 24.4 pg (27.0-32.0); MEAN CORPUSCULAR HGB CONC 30.9 g/dL (31.0-35.0); MEAN CORPUSCULAR VOLUME 79 fL (76-96); MONOCYTES ABSOLUTE AUTO 0.24 K/uL (0.20-0.80); NEUTROPHILS ABSOLUTE AUTO 2.74 K/uL (2.00-7.50); NEUTROPHILS PERCENT AUTO 56.6 % (45.0-70.0); PLATELET COUNT,PLT 163 K/uL (150-400); RED BLOOD CELL COUNT 3.48 M/uL (4.50-6.50); RED CELL DISTRIBUTION WIDTH 26.8 % (11.0-16.0); WHITE BLOOD CELL COUNT,WBC 4.8 K/uL (4.0-11.0)
[2023-08-08 12:06] LABS: HEMOGLOBIN 8.5 g/dL (13.0-18.0)
[2023-08-08 12:26] LABS: A/G RATIO 0.4 (0.8-2.0); ALBUMIN 2.2 g/dL (3.4-5.0); BILIRUBIN TOTAL 0.4 mg/dL (0.0-1.0); BUN/CREATININE RATIO 19.7 (6-25); CALCIUM 8.8 mg/dL (8.5-10.1); CARBON DIOXIDE,CO2 28.9 mmol/L (21.0-32.0); CREATININE 1.27 mg/dL (0.70-1.30); EST CRCL DRUG DOSING (CG) 61.13 mL/min; POTASSIUM,K 3.9 mmol/L (3.5-5.1); PROTEIN TOTAL,TP 7.7 g/dL (6.4-8.2)
[2023-08-08 13:01] LABS: SEDIMENTATION RATE MANUAL 86 mm/hr (0-20)
[2023-08-08] MEDS: rOPINIRole 0.25 MG Tab PO SCH (21:03)
[2023-08-08] MEDS: atorvaSTATin 40 MG Tab PO SCH (21:03)
[2023-08-08] MEDS: Tamsulosin 0.4 MG Cap.ER PO SCH (21:04)
[2023-08-08] MEDS: Insulin Glargine,Human Rec. Analog 100 Units/ML 3 ML Pen SUBCUT SCH (21:10)
[2023-08-09] MEDS: Magnesium Oxide 400 MG Tab PO SCH ×2 (06:22→08:06)
[2023-08-09] MEDS: metFORMIN 500 MG Tab PO SCH ×3 (06:23→17:18)
[2023-08-09] MEDS: Ascorbic Acid 500 MG Tab PO SCH ×2 (06:23→08:07)
[2023-08-09] MEDS: Sennosides/Docusate Sodium 50-8.6 MG Tab PO SCH ×3 (06:24→19:17)
[2023-08-09] MEDS: Pregabalin 75 MG Cap PO SCH ×3 (06:24→19:17)
[2023-08-09] MEDS: Acetaminophen/HYDROcodone 325-5 MG Tab PO PRN (06:24)
[2023-08-09] MEDS: Multivitamins with Iron/Calcium/Folic Acid/Minerals Tab PO SCH ×2 (06:25→08:07)
[2023-08-09] MEDS: Metoprolol Succinate 50 MG Tab.ER PO SCH ×2 (06:25→08:07)
[2023-08-09] MEDS: Lactobacillus Acidophilus/Lactobacillus Sporogenes (Probiotic) Tab PO SCH ×2 (06:25→08:04)
[2023-08-09] MEDS: Calcium Carbonate/Vitamin D3 1500 MG-400 Units Tab PO SCH ×3 (06:25→19:17)
[2023-08-09] MEDS: Aspirin 81 MG Tab.EC PO SCH ×2 (06:26→08:05)
[2023-08-09] MEDS: Chlorthalidone 25 MG Tab PO SCH ×2 (06:26→08:04)
[2023-08-09] MEDS: Polyethylene Glycol 3350 Powder 17 GM Packet PO SCH ×2 (06:27→08:07)
[2023-08-09] MEDS: rOPINIRole 0.25 MG Tab PO SCH (19:16)
[2023-08-09] MEDS: Tamsulosin 0.4 MG Cap.ER PO SCH (19:16)
[2023-08-09] MEDS: atorvaSTATin 40 MG Tab PO SCH (19:17)
[2023-08-09] MEDS: Insulin Glargine,Human Rec. Analog 100 Units/ML 3 ML Pen SUBCUT SCH (19:18)
[2023-08-10] MEDS: Pregabalin 75 MG Cap PO SCH ×2 (09:05→19:22)
[2023-08-10] MEDS: Calcium Carbonate/Vitamin D3 1500 MG-400 Units Tab PO SCH ×2 (09:05→19:22)
[2023-08-10] MEDS: Ascorbic Acid 500 MG Tab PO SCH (09:05)
[2023-08-10] MEDS: Chlorthalidone 25 MG Tab PO SCH (09:06)
[2023-08-10] MEDS: Magnesium Oxide 400 MG Tab PO SCH (09:07)
[2023-08-10] MEDS: Metoprolol Succinate 50 MG Tab.ER PO SCH (09:07)
[2023-08-10] MEDS: metFORMIN 500 MG Tab PO SCH ×2 (09:07→17:03)
[2023-08-10] MEDS: Aspirin 81 MG Tab.EC PO SCH (09:07)
[2023-08-10] MEDS: Sennosides/Docusate Sodium 50-8.6 MG Tab PO SCH ×2 (09:08→19:22)
[2023-08-10] MEDS: Multivitamins with Iron/Calcium/Folic Acid/Minerals Tab PO SCH (09:08)
[2023-08-10] MEDS: Lactobacillus Acidophilus/Lactobacillus Sporogenes (Probiotic) Tab PO SCH (09:08)
[2023-08-10] MEDS: Polyethylene Glycol 3350 Powder 17 GM Packet PO SCH (09:09)
[2023-08-10] MEDS: Acetaminophen/HYDROcodone 325-5 MG Tab PO PRN (11:47)
[2023-08-10] MEDS: Insulin Glargine,Human Rec. Analog 100 Units/ML 3 ML Pen SUBCUT SCH (19:18)
[2023-08-10] MEDS: Tamsulosin 0.4 MG Cap.ER PO SCH (19:20)
[2023-08-10] MEDS: rOPINIRole 0.25 MG Tab PO SCH (19:21)
[2023-08-10] MEDS: atorvaSTATin 40 MG Tab PO SCH (19:22)
[2023-08-11] MEDS: Polyethylene Glycol 3350 Powder 17 GM Packet PO SCH (08:40)
[2023-08-11] MEDS: Lactobacillus Acidophilus/Lactobacillus Sporogenes (Probiotic) Tab PO SCH (08:41)
[2023-08-11] MEDS: Chlorthalidone 25 MG Tab PO SCH (08:41)
[2023-08-11] MEDS: metFORMIN 500 MG Tab PO SCH ×2 (08:41→17:08)
[2023-08-11] MEDS: Multivitamins with Iron/Calcium/Folic Acid/Minerals Tab PO SCH (08:41)
[2023-08-11] MEDS: Metoprolol Succinate 50 MG Tab.ER PO SCH (08:41)
[2023-08-11] MEDS: Aspirin 81 MG Tab.EC PO SCH (08:41)
[2023-08-11] MEDS: Ascorbic Acid 500 MG Tab PO SCH (08:41)
[2023-08-11] MEDS: Calcium Carbonate/Vitamin D3 1500 MG-400 Units Tab PO SCH ×2 (08:41→20:34)
[2023-08-11] MEDS: Pregabalin 75 MG Cap PO SCH ×2 (08:42→20:32)
[2023-08-11] MEDS: Magnesium Oxide 400 MG Tab PO SCH (08:42)
[2023-08-11] MEDS: Sennosides/Docusate Sodium 50-8.6 MG Tab PO SCH ×2 (08:42→20:32)
[2023-08-11] MEDS: Acetaminophen/HYDROcodone 325-5 MG Tab PO PRN (20:32)
[2023-08-11] MEDS: Tamsulosin 0.4 MG Cap.ER PO SCH (20:32)
[2023-08-11] MEDS: atorvaSTATin 40 MG Tab PO SCH (20:33)
[2023-08-11] MEDS: Insulin Glargine,Human Rec. Analog 100 Units/ML 3 ML Pen SUBCUT SCH (20:34)
[2023-08-11] MEDS: rOPINIRole 0.25 MG Tab PO SCH (20:34)
[2023-08-12] MEDS: Lactobacillus Acidophilus/Lactobacillus Sporogenes (Probiotic) Tab PO SCH (07:28)
[2023-08-12] MEDS: Multivitamins with Iron/Calcium/Folic Acid/Minerals Tab PO SCH (07:28)
[2023-08-12] MEDS: Aspirin 81 MG Tab.EC PO SCH (07:28)
[2023-08-12] MEDS: Chlorthalidone 25 MG Tab PO SCH (07:28)
[2023-08-12] MEDS: Ascorbic Acid 500 MG Tab PO SCH (07:29)
[2023-08-12] MEDS: metFORMIN 500 MG Tab PO SCH ×2 (07:29→17:20)
[2023-08-12] MEDS: Sennosides/Docusate Sodium 50-8.6 MG Tab PO SCH ×2 (07:29→19:25)
[2023-08-12] MEDS: Magnesium Oxide 400 MG Tab PO SCH (07:29)
[2023-08-12] MEDS: Pregabalin 75 MG Cap PO SCH ×2 (07:30→19:25)
[2023-08-12] MEDS: Calcium Carbonate/Vitamin D3 1500 MG-400 Units Tab PO SCH ×2 (07:30→19:23)
[2023-08-12] MEDS: Polyethylene Glycol 3350 Powder 17 GM Packet PO SCH (07:31)
[2023-08-12] MEDS: Metoprolol Succinate 50 MG Tab.ER PO SCH (07:33)
[2023-08-12] MEDS: Insulin Glargine,Human Rec. Analog 100 Units/ML 3 ML Pen SUBCUT SCH (19:23)
[2023-08-12] MEDS: Tamsulosin 0.4 MG Cap.ER PO SCH (19:23)
[2023-08-12] MEDS: atorvaSTATin 40 MG Tab PO SCH (19:24)
[2023-08-12] MEDS: rOPINIRole 0.25 MG Tab PO SCH (19:25)
[2023-08-13] MEDS: Aspirin 81 MG Tab.EC PO SCH (08:11)
[2023-08-13] MEDS: Pregabalin 75 MG Cap PO SCH ×2 (08:14→19:45)
[2023-08-13] MEDS: Metoprolol Succinate 50 MG Tab.ER PO SCH (08:14)
[2023-08-13] MEDS: Multivitamins with Iron/Calcium/Folic Acid/Minerals Tab PO SCH (08:15)
[2023-08-13] MEDS: Sennosides/Docusate Sodium 50-8.6 MG Tab PO SCH ×2 (08:15→19:45)
[2023-08-13] MEDS: Calcium Carbonate/Vitamin D3 1500 MG-400 Units Tab PO SCH ×2 (08:15→19:45)
[2023-08-13] MEDS: Ascorbic Acid 500 MG Tab PO SCH (08:15)
[2023-08-13] MEDS: Chlorthalidone 25 MG Tab PO SCH (08:16)
[2023-08-13] MEDS: Lactobacillus Acidophilus/Lactobacillus Sporogenes (Probiotic) Tab PO SCH (08:16)
[2023-08-13] MEDS: metFORMIN 500 MG Tab PO SCH ×2 (08:16→16:54)
[2023-08-13] MEDS: Magnesium Oxide 400 MG Tab PO SCH (08:16)
[2023-08-13] MEDS: Polyethylene Glycol 3350 Powder 17 GM Packet PO SCH (08:19)
[2023-08-13] MEDS: Acetaminophen/HYDROcodone 325-5 MG Tab PO PRN ×2 (13:27→19:47)
[2023-08-13] MEDS: Insulin Glargine,Human Rec. Analog 100 Units/ML 3 ML Pen SUBCUT SCH (19:44)
[2023-08-13] MEDS: atorvaSTATin 40 MG Tab PO SCH (19:45)
[2023-08-13] MEDS: Tamsulosin 0.4 MG Cap.ER PO SCH (19:45)
[2023-08-13] MEDS: rOPINIRole 0.25 MG Tab PO SCH (19:46)
[2023-08-14] MEDS: Pregabalin 75 MG Cap PO SCH ×2 (07:55→19:19)
[2023-08-14] MEDS: Calcium Carbonate/Vitamin D3 1500 MG-400 Units Tab PO SCH ×2 (07:55→19:20)
[2023-08-14] MEDS: Chlorthalidone 25 MG Tab PO SCH (07:55)
[2023-08-14] MEDS: Sennosides/Docusate Sodium 50-8.6 MG Tab PO SCH ×2 (07:55→19:20)
[2023-08-14] MEDS: Multivitamins with Iron/Calcium/Folic Acid/Minerals Tab PO SCH (07:55)
[2023-08-14] MEDS: Magnesium Oxide 400 MG Tab PO SCH (07:55)
[2023-08-14] MEDS: Aspirin 81 MG Tab.EC PO SCH (07:55)
[2023-08-14] MEDS: metFORMIN 500 MG Tab PO SCH ×2 (07:55→18:15)
[2023-08-14] MEDS: Lactobacillus Acidophilus/Lactobacillus Sporogenes (Probiotic) Tab PO SCH (07:55)
[2023-08-14] MEDS: Ascorbic Acid 500 MG Tab PO SCH (07:55)
[2023-08-14] MEDS: Polyethylene Glycol 3350 Powder 17 GM Packet PO SCH (07:55)
[2023-08-14] MEDS: Metoprolol Succinate 50 MG Tab.ER PO SCH (08:07)
[2023-08-14] MEDS: Tamsulosin 0.4 MG Cap.ER PO SCH (19:19)
[2023-08-14] MEDS: atorvaSTATin 40 MG Tab PO SCH (19:20)
[2023-08-14] MEDS: Acetaminophen/HYDROcodone 325-5 MG Tab PO PRN (19:20)
[2023-08-14] MEDS: rOPINIRole 0.25 MG Tab PO SCH (19:20)
[2023-08-14] MEDS: Insulin Glargine,Human Rec. Analog 100 Units/ML 3 ML Pen SUBCUT SCH (19:22)
[2023-08-15] MEDS: Sennosides/Docusate Sodium 50-8.6 MG Tab PO SCH ×2 (08:15→20:33)
[2023-08-15] MEDS: metFORMIN 500 MG Tab PO SCH ×2 (08:15→17:04)
[2023-08-15] MEDS: Magnesium Oxide 400 MG Tab PO SCH (08:16)
[2023-08-15] MEDS: Ascorbic Acid 500 MG Tab PO SCH (08:16)
[2023-08-15] MEDS: Calcium Carbonate/Vitamin D3 1500 MG-400 Units Tab PO SCH ×2 (08:16→20:33)
[2023-08-15] MEDS: Pregabalin 75 MG Cap PO SCH ×2 (08:16→20:33)
[2023-08-15] MEDS: Lactobacillus Acidophilus/Lactobacillus Sporogenes (Probiotic) Tab PO SCH (08:16)
[2023-08-15] MEDS: Polyethylene Glycol 3350 Powder 17 GM Packet PO SCH (08:17)
[2023-08-15] MEDS: Aspirin 81 MG Tab.EC PO SCH (08:17)
[2023-08-15] MEDS: Metoprolol Succinate 50 MG Tab.ER PO SCH (08:17)
[2023-08-15] MEDS: Chlorthalidone 25 MG Tab PO SCH (08:17)
[2023-08-15] MEDS: Multivitamins with Iron/Calcium/Folic Acid/Minerals Tab PO SCH (08:19)
[2023-08-15] MEDS: Tamsulosin 0.4 MG Cap.ER PO SCH (20:32)
[2023-08-15] MEDS: atorvaSTATin 40 MG Tab PO SCH (20:33)
[2023-08-15] MEDS: rOPINIRole 0.25 MG Tab PO SCH (20:33)
[2023-08-15] MEDS: Acetaminophen/HYDROcodone 325-5 MG Tab PO PRN (20:34)
[2023-08-15] MEDS: Insulin Glargine,Human Rec. Analog 100 Units/ML 3 ML Pen SUBCUT SCH (20:34)
[2023-08-16] MEDS: Magnesium Oxide 400 MG Tab PO SCH (08:18)
[2023-08-16] MEDS: Polyethylene Glycol 3350 Powder 17 GM Packet PO SCH (08:18)
[2023-08-16] MEDS: Chlorthalidone 25 MG Tab PO SCH (08:19)
[2023-08-16] MEDS: Calcium Carbonate/Vitamin D3 1500 MG-400 Units Tab PO SCH ×2 (08:19→19:37)
[2023-08-16] MEDS: Multivitamins with Iron/Calcium/Folic Acid/Minerals Tab PO SCH (08:19)
[2023-08-16] MEDS: Lactobacillus Acidophilus/Lactobacillus Sporogenes (Probiotic) Tab PO SCH (08:19)
[2023-08-16] MEDS: Metoprolol Succinate 50 MG Tab.ER PO SCH (08:19)
[2023-08-16] MEDS: Ascorbic Acid 500 MG Tab PO SCH (08:19)
[2023-08-16] MEDS: metFORMIN 500 MG Tab PO SCH ×2 (08:19→17:03)
[2023-08-16] MEDS: Sennosides/Docusate Sodium 50-8.6 MG Tab PO SCH ×2 (08:19→19:36)
[2023-08-16] MEDS: Aspirin 81 MG Tab.EC PO SCH (08:19)
[2023-08-16] MEDS: Pregabalin 75 MG Cap PO SCH ×2 (08:19→19:37)
[2023-08-16] MEDS: Acetaminophen/HYDROcodone 325-5 MG Tab PO PRN (13:15)
[2023-08-16] MEDS: Tamsulosin 0.4 MG Cap.ER PO SCH (19:36)
[2023-08-16] MEDS: rOPINIRole 0.25 MG Tab PO SCH (19:37)
[2023-08-16] MEDS: Insulin Glargine,Human Rec. Analog 100 Units/ML 3 ML Pen SUBCUT SCH (19:37)
[2023-08-16] MEDS: atorvaSTATin 40 MG Tab PO SCH (19:37)
[2023-08-17] MEDS: Pregabalin 75 MG Cap PO SCH ×2 (08:06→19:39)
[2023-08-17] MEDS: metFORMIN 500 MG Tab PO SCH ×2 (08:06→18:09)
[2023-08-17] MEDS: Sennosides/Docusate Sodium 50-8.6 MG Tab PO SCH ×2 (08:06→19:40)
[2023-08-17] MEDS: Multivitamins with Iron/Calcium/Folic Acid/Minerals Tab PO SCH (08:06)
[2023-08-17] MEDS: Lactobacillus Acidophilus/Lactobacillus Sporogenes (Probiotic) Tab PO SCH (08:07)
[2023-08-17] MEDS: Magnesium Oxide 400 MG Tab PO SCH (08:07)
[2023-08-17] MEDS: Aspirin 81 MG Tab.EC PO SCH (08:07)
[2023-08-17] MEDS: Chlorthalidone 25 MG Tab PO SCH (08:07)
[2023-08-17] MEDS: Ascorbic Acid 500 MG Tab PO SCH (08:07)
[2023-08-17] MEDS: Metoprolol Succinate 50 MG Tab.ER PO SCH (08:07)
[2023-08-17] MEDS: Polyethylene Glycol 3350 Powder 17 GM Packet PO SCH (08:07)
[2023-08-17] MEDS: Calcium Carbonate/Vitamin D3 1500 MG-400 Units Tab PO SCH ×2 (08:08→19:41)
[2023-08-17] MEDS: Tamsulosin 0.4 MG Cap.ER PO SCH (19:39)
[2023-08-17] MEDS: rOPINIRole 0.25 MG Tab PO SCH (19:39)
[2023-08-17] MEDS: Insulin Glargine,Human Rec. Analog 100 Units/ML 3 ML Pen SUBCUT SCH (19:39)
[2023-08-17] MEDS: atorvaSTATin 40 MG Tab PO SCH (19:39)
[2023-08-18] MEDS: Calcium Carbonate/Vitamin D3 1500 MG-400 Units Tab PO SCH ×2 (07:42→19:15)
[2023-08-18] MEDS: Sennosides/Docusate Sodium 50-8.6 MG Tab PO SCH ×2 (07:42→19:16)
[2023-08-18] MEDS: Lactobacillus Acidophilus/Lactobacillus Sporogenes (Probiotic) Tab PO SCH (07:42)
[2023-08-18] MEDS: Pregabalin 75 MG Cap PO SCH ×2 (07:42→19:16)
[2023-08-18] MEDS: Multivitamins with Iron/Calcium/Folic Acid/Minerals Tab PO SCH (07:42)
[2023-08-18] MEDS: metFORMIN 500 MG Tab PO SCH ×2 (07:42→19:22)
[2023-08-18] MEDS: Chlorthalidone 25 MG Tab PO SCH (07:42)
[2023-08-18] MEDS: Magnesium Oxide 400 MG Tab PO SCH (07:42)
[2023-08-18] MEDS: Ascorbic Acid 500 MG Tab PO SCH (07:42)
[2023-08-18] MEDS: Metoprolol Succinate 50 MG Tab.ER PO SCH (07:42)
[2023-08-18] MEDS: Polyethylene Glycol 3350 Powder 17 GM Packet PO SCH (07:43)
[2023-08-18] MEDS: Aspirin 81 MG Tab.EC PO SCH (07:43)
[2023-08-18] MEDS: Tamsulosin 0.4 MG Cap.ER PO SCH (19:15)
[2023-08-18] MEDS: Insulin Glargine,Human Rec. Analog 100 Units/ML 3 ML Pen SUBCUT SCH (19:15)
[2023-08-18] MEDS: atorvaSTATin 40 MG Tab PO SCH (19:16)
[2023-08-18] MEDS: Acetaminophen/HYDROcodone 325-5 MG Tab PO PRN (19:16)
[2023-08-18] MEDS: rOPINIRole 0.25 MG Tab PO SCH (19:16)
[2023-08-19] MEDS: Chlorthalidone 25 MG Tab PO SCH (08:59)
[2023-08-19] MEDS: Ascorbic Acid 500 MG Tab PO SCH (08:59)
[2023-08-19] MEDS: Lactobacillus Acidophilus/Lactobacillus Sporogenes (Probiotic) Tab PO SCH (08:59)
[2023-08-19] MEDS: Magnesium Oxide 400 MG Tab PO SCH (08:59)
[2023-08-19] MEDS: Multivitamins with Iron/Calcium/Folic Acid/Minerals Tab PO SCH (08:59)
[2023-08-19] MEDS: metFORMIN 500 MG Tab PO SCH ×2 (08:59→16:17)
[2023-08-19] MEDS: Calcium Carbonate/Vitamin D3 1500 MG-400 Units Tab PO SCH ×2 (08:59→19:05)
[2023-08-19] MEDS: Sennosides/Docusate Sodium 50-8.6 MG Tab PO SCH ×2 (08:59→19:05)
[2023-08-19] MEDS: Aspirin 81 MG Tab.EC PO SCH (08:59)
[2023-08-19] MEDS: Pregabalin 75 MG Cap PO SCH ×2 (08:59→19:04)
[2023-08-19] MEDS: Polyethylene Glycol 3350 Powder 17 GM Packet PO SCH (08:59)
[2023-08-19] MEDS: Metoprolol Succinate 50 MG Tab.ER PO SCH (08:59)
[2023-08-19] MEDS: Acetaminophen/HYDROcodone 325-5 MG Tab PO PRN (09:18)
[2023-08-19] MEDS: Tamsulosin 0.4 MG Cap.ER PO SCH (19:04)
[2023-08-19] MEDS: rOPINIRole 1 MG Tab PO SCH (19:04)
[2023-08-19] MEDS: atorvaSTATin 40 MG Tab PO SCH (19:04)
[2023-08-19] MEDS: Insulin Glargine,Human Rec. Analog 100 Units/ML 3 ML Pen SUBCUT SCH (19:06)
[2023-08-20] MEDS: Sennosides/Docusate Sodium 50-8.6 MG Tab PO SCH ×2 (08:33→19:54)
[2023-08-20] MEDS: Acetaminophen/HYDROcodone 325-5 MG Tab PO PRN ×2 (08:33→19:55)
[2023-08-20] MEDS: metFORMIN 500 MG Tab PO SCH ×2 (08:34→17:09)
[2023-08-20] MEDS: Metoprolol Succinate 50 MG Tab.ER PO SCH (08:34)
[2023-08-20] MEDS: Aspirin 81 MG Tab.EC PO SCH (08:34)
[2023-08-20] MEDS: Magnesium Oxide 400 MG Tab PO SCH (08:34)
[2023-08-20] MEDS: Pregabalin 75 MG Cap PO SCH ×2 (08:35→19:54)
[2023-08-20] MEDS: Calcium Carbonate/Vitamin D3 1500 MG-400 Units Tab PO SCH ×2 (08:35→19:54)
[2023-08-20] MEDS: Ascorbic Acid 500 MG Tab PO SCH (08:35)
[2023-08-20] MEDS: Chlorthalidone 25 MG Tab PO SCH (08:35)
[2023-08-20] MEDS: Lactobacillus Acidophilus/Lactobacillus Sporogenes (Probiotic) Tab PO SCH (08:35)
[2023-08-20] MEDS: Multivitamins with Iron/Calcium/Folic Acid/Minerals Tab PO SCH (08:35)
[2023-08-20] MEDS: Polyethylene Glycol 3350 Powder 17 GM Packet PO SCH (08:36)
[2023-08-20] MEDS: Insulin Glargine,Human Rec. Analog 100 Units/ML 3 ML Pen SUBCUT SCH (19:53)
[2023-08-20] MEDS: rOPINIRole 1 MG Tab PO SCH (19:54)
[2023-08-20] MEDS: atorvaSTATin 40 MG Tab PO SCH (19:54)
[2023-08-20] MEDS: Tamsulosin 0.4 MG Cap.ER PO SCH (19:54)
[2023-08-21] MEDS: Pregabalin 75 MG Cap PO SCH ×2 (07:52→19:33)
[2023-08-21] MEDS: Aspirin 81 MG Tab.EC PO SCH (07:52)
[2023-08-21] MEDS: Lactobacillus Acidophilus/Lactobacillus Sporogenes (Probiotic) Tab PO SCH (07:52)
[2023-08-21] MEDS: Polyethylene Glycol 3350 Powder 17 GM Packet PO SCH (07:52)
[2023-08-21] MEDS: Magnesium Oxide 400 MG Tab PO SCH (07:52)
[2023-08-21] MEDS: metFORMIN 500 MG Tab PO SCH ×2 (07:52→17:00)
[2023-08-21] MEDS: Calcium Carbonate/Vitamin D3 1500 MG-400 Units Tab PO SCH ×2 (07:52→19:33)
[2023-08-21] MEDS: Chlorthalidone 25 MG Tab PO SCH (07:52)
[2023-08-21] MEDS: Ascorbic Acid 500 MG Tab PO SCH (07:53)
[2023-08-21] MEDS: Multivitamins with Iron/Calcium/Folic Acid/Minerals Tab PO SCH (07:53)
[2023-08-21] MEDS: Metoprolol Succinate 50 MG Tab.ER PO SCH (07:53)
[2023-08-21] MEDS: Sennosides/Docusate Sodium 50-8.6 MG Tab PO SCH ×2 (07:53→19:33)
[2023-08-21] MEDS: Acetaminophen/HYDROcodone 325-5 MG Tab PO PRN ×2 (10:10→19:33)
[2023-08-21 10:57] LABS: APPEARANCE,URINE TURBID (CLEAR); BILIRUBIN,URINE NEGATIVE (NEGATIVE); COLOR,URINE ORANGE; GLUCOSE,URINE NEGATIVE (NEGATIVE); KETONES,URINE NEGATIVE (NEGATIVE); LEUKOCYTE ESTERASE,URINE LARGE (NEGATIVE); NITRITE,URINE NEGATIVE (NEGATIVE); OCCULT BLOOD,URINE LARGE (NEGATIVE); PROTEIN,URINE >=300 mg/dL (NEGATIVE)
[2023-08-21 11:05] LABS: RBC,URINE >100 /HPF; WBC CLUMPS,URINE FEW /HPF; WBC,URINE >100 /HPF
[2023-08-21] MEDS: Amoxicillin 500 MG Cap PO SCH ×2 (13:57→19:33)
[2023-08-21] MEDS: Tamsulosin 0.4 MG Cap.ER PO SCH (19:33)
[2023-08-21] MEDS: Insulin Glargine,Human Rec. Analog 100 Units/ML 3 ML Pen SUBCUT SCH (19:33)
[2023-08-21] MEDS: atorvaSTATin 40 MG Tab PO SCH (19:33)
[2023-08-21] MEDS: rOPINIRole 1 MG Tab PO SCH (19:33)
[2023-08-22] MEDS: Multivitamins with Iron/Calcium/Folic Acid/Minerals Tab PO SCH (07:50)
[2023-08-22] MEDS: Magnesium Oxide 400 MG Tab PO SCH (07:50)
[2023-08-22] MEDS: metFORMIN 500 MG Tab PO SCH ×2 (07:50→16:33)
[2023-08-22] MEDS: Ascorbic Acid 500 MG Tab PO SCH (07:50)
[2023-08-22] MEDS: Chlorthalidone 25 MG Tab PO SCH (07:50)
[2023-08-22] MEDS: Calcium Carbonate/Vitamin D3 1500 MG-400 Units Tab PO SCH ×2 (07:51→20:27)
[2023-08-22] MEDS: Amoxicillin 500 MG Cap PO SCH ×3 (07:51→20:28)
[2023-08-22] MEDS: Metoprolol Succinate 50 MG Tab.ER PO SCH (07:51)
[2023-08-22] MEDS: Pregabalin 75 MG Cap PO SCH ×2 (07:51→20:27)
[2023-08-22] MEDS: Sennosides/Docusate Sodium 50-8.6 MG Tab PO SCH ×2 (07:51→20:27)
[2023-08-22] MEDS: Polyethylene Glycol 3350 Powder 17 GM Packet PO SCH (07:52)
[2023-08-22] MEDS: Aspirin 81 MG Tab.EC PO SCH (07:52)
[2023-08-22] MEDS: Lactobacillus Acidophilus/Lactobacillus Sporogenes (Probiotic) Tab PO SCH (07:52)
[2023-08-22] MEDS: Acetaminophen/HYDROcodone 325-5 MG Tab PO PRN ×2 (09:12→20:32)
[2023-08-22] MEDS: Insulin Glargine,Human Rec. Analog 100 Units/ML 3 ML Pen SUBCUT SCH (20:24)
[2023-08-22] MEDS: atorvaSTATin 40 MG Tab PO SCH (20:27)
[2023-08-22] MEDS: Tamsulosin 0.4 MG Cap.ER PO SCH (20:27)
[2023-08-22] MEDS: rOPINIRole 1 MG Tab PO SCH (20:30)
[2023-08-22] MEDS: SODIUM HYPOCHLORITE 0.25% TOP PRN (21:34)
[2023-08-23] MEDS: Acetaminophen/HYDROcodone 325-5 MG Tab PO PRN ×2 (08:03→14:13)
[2023-08-23] MEDS: metFORMIN 500 MG Tab PO SCH ×2 (08:03→17:15)
[2023-08-23] MEDS: Amoxicillin 500 MG Cap PO SCH ×3 (08:03→19:41)
[2023-08-23] MEDS: Polyethylene Glycol 3350 Powder 17 GM Packet PO SCH (08:03)
[2023-08-23] MEDS: Multivitamins with Iron/Calcium/Folic Acid/Minerals Tab PO SCH (08:04)
[2023-08-23] MEDS: Ascorbic Acid 500 MG Tab PO SCH (08:04)
[2023-08-23] MEDS: Calcium Carbonate/Vitamin D3 1500 MG-400 Units Tab PO SCH ×2 (08:04→19:40)
[2023-08-23] MEDS: Magnesium Oxide 400 MG Tab PO SCH (08:04)
[2023-08-23] MEDS: Lactobacillus Acidophilus/Lactobacillus Sporogenes (Probiotic) Tab PO SCH (08:04)
[2023-08-23] MEDS: Aspirin 81 MG Tab.EC PO SCH (08:04)
[2023-08-23] MEDS: Metoprolol Succinate 50 MG Tab.ER PO SCH (08:04)
[2023-08-23] MEDS: Chlorthalidone 25 MG Tab PO SCH (08:04)
[2023-08-23] MEDS: Pregabalin 75 MG Cap PO SCH ×2 (08:04→19:41)
[2023-08-23] MEDS: Sennosides/Docusate Sodium 50-8.6 MG Tab PO SCH ×2 (08:05→19:40)
[2023-08-23] MEDS: Tamsulosin 0.4 MG Cap.ER PO SCH (19:40)
[2023-08-23] MEDS: rOPINIRole 1 MG Tab PO SCH (19:41)
[2023-08-23] MEDS: atorvaSTATin 40 MG Tab PO SCH (19:41)
[2023-08-23] MEDS: Insulin Glargine,Human Rec. Analog 100 Units/ML 3 ML Pen SUBCUT SCH (19:41)
[2023-08-24] MEDS: Polyethylene Glycol 3350 Powder 17 GM Packet PO SCH (08:18)
[2023-08-24] MEDS: Lactobacillus Acidophilus/Lactobacillus Sporogenes (Probiotic) Tab PO SCH (08:19)
[2023-08-24] MEDS: Multivitamins with Iron/Calcium/Folic Acid/Minerals Tab PO SCH (08:19)
[2023-08-24] MEDS: Pregabalin 75 MG Cap PO SCH ×2 (08:19→20:50)
[2023-08-24] MEDS: Calcium Carbonate/Vitamin D3 1500 MG-400 Units Tab PO SCH ×2 (08:19→20:50)
[2023-08-24] MEDS: Aspirin 81 MG Tab.EC PO SCH (08:19)
[2023-08-24] MEDS: Amoxicillin 500 MG Cap PO SCH ×3 (08:19→20:50)
[2023-08-24] MEDS: Chlorthalidone 25 MG Tab PO SCH (08:19)
[2023-08-24] MEDS: Metoprolol Succinate 50 MG Tab.ER PO SCH (08:19)
[2023-08-24] MEDS: metFORMIN 500 MG Tab PO SCH ×2 (08:19→17:03)
[2023-08-24] MEDS: Sennosides/Docusate Sodium 50-8.6 MG Tab PO SCH ×2 (08:19→20:50)
[2023-08-24] MEDS: Magnesium Oxide 400 MG Tab PO SCH (08:19)
[2023-08-24] MEDS: Ascorbic Acid 500 MG Tab PO SCH (08:19)
[2023-08-24] MEDS: Acetaminophen/HYDROcodone 325-5 MG Tab PO PRN ×2 (12:05→20:50)
[2023-08-24] MEDS: rOPINIRole 1 MG Tab PO SCH (20:49)
[2023-08-24] MEDS: atorvaSTATin 40 MG Tab PO SCH (20:49)
[2023-08-24] MEDS: Tamsulosin 0.4 MG Cap.ER PO SCH (20:50)
[2023-08-24] MEDS: Insulin Glargine,Human Rec. Analog 100 Units/ML 3 ML Pen SUBCUT SCH (20:52)
[2023-08-25] MEDS: Magnesium Oxide 400 MG Tab PO SCH (08:13)
[2023-08-25] MEDS: Amoxicillin 500 MG Cap PO SCH ×3 (08:13→19:58)
[2023-08-25] MEDS: Acetaminophen/HYDROcodone 325-5 MG Tab PO PRN ×2 (08:13→13:13)
[2023-08-25] MEDS: Chlorthalidone 25 MG Tab PO SCH (08:13)
[2023-08-25] MEDS: Calcium Carbonate/Vitamin D3 1500 MG-400 Units Tab PO SCH ×2 (08:14→19:58)
[2023-08-25] MEDS: Lactobacillus Acidophilus/Lactobacillus Sporogenes (Probiotic) Tab PO SCH (08:14)
[2023-08-25] MEDS: Ascorbic Acid 500 MG Tab PO SCH (08:14)
[2023-08-25] MEDS: metFORMIN 500 MG Tab PO SCH ×2 (08:15→17:17)
[2023-08-25] MEDS: Aspirin 81 MG Tab.EC PO SCH (08:15)
[2023-08-25] MEDS: Multivitamins with Iron/Calcium/Folic Acid/Minerals Tab PO SCH (08:15)
[2023-08-25] MEDS: Sennosides/Docusate Sodium 50-8.6 MG Tab PO SCH ×2 (08:16→19:57)
[2023-08-25] MEDS: Pregabalin 75 MG Cap PO SCH ×2 (08:16→19:58)
[2023-08-25] MEDS: Metoprolol Succinate 50 MG Tab.ER PO SCH (08:16)
[2023-08-25] MEDS: Polyethylene Glycol 3350 Powder 17 GM Packet PO SCH (08:19)
[2023-08-25] MEDS: rOPINIRole 1 MG Tab PO SCH (19:57)
[2023-08-25] MEDS: Tamsulosin 0.4 MG Cap.ER PO SCH (19:57)
[2023-08-25] MEDS: atorvaSTATin 40 MG Tab PO SCH (19:58)
[2023-08-25] MEDS: Insulin Glargine,Human Rec. Analog 100 Units/ML 3 ML Pen SUBCUT SCH (19:59)
[2023-08-26] MEDS: Multivitamins with Iron/Calcium/Folic Acid/Minerals Tab PO SCH (08:22)
[2023-08-26] MEDS: metFORMIN 500 MG Tab PO SCH ×2 (08:22→16:59)
[2023-08-26] MEDS: Polyethylene Glycol 3350 Powder 17 GM Packet PO SCH (08:22)
[2023-08-26] MEDS: Pregabalin 75 MG Cap PO SCH ×2 (08:22→20:56)
[2023-08-26] MEDS: Calcium Carbonate/Vitamin D3 1500 MG-400 Units Tab PO SCH ×2 (08:22→20:56)
[2023-08-26] MEDS: Ascorbic Acid 500 MG Tab PO SCH (08:22)
[2023-08-26] MEDS: Aspirin 81 MG Tab.EC PO SCH (08:22)
[2023-08-26] MEDS: Chlorthalidone 25 MG Tab PO SCH (08:22)
[2023-08-26] MEDS: Lactobacillus Acidophilus/Lactobacillus Sporogenes (Probiotic) Tab PO SCH (08:22)
[2023-08-26] MEDS: Magnesium Oxide 400 MG Tab PO SCH (08:22)
[2023-08-26] MEDS: Sennosides/Docusate Sodium 50-8.6 MG Tab PO SCH ×2 (08:22→20:56)
[2023-08-26] MEDS: Metoprolol Succinate 50 MG Tab.ER PO SCH (08:23)
[2023-08-26] MEDS: Amoxicillin 500 MG Cap PO SCH ×3 (08:23→20:56)
[2023-08-26] MEDS: Acetaminophen/HYDROcodone 325-5 MG Tab PO PRN ×2 (08:25→20:56)
[2023-08-26] MEDS: Tamsulosin 0.4 MG Cap.ER PO SCH (20:56)
[2023-08-26] MEDS: atorvaSTATin 40 MG Tab PO SCH (20:56)
[2023-08-26] MEDS: rOPINIRole 1 MG Tab PO SCH (20:56)
[2023-08-26] MEDS: Insulin Glargine,Human Rec. Analog 100 Units/ML 3 ML Pen SUBCUT SCH (20:57)
[2023-08-27] MEDS: Lactobacillus Acidophilus/Lactobacillus Sporogenes (Probiotic) Tab PO SCH (08:15)
[2023-08-27] MEDS: Amoxicillin 500 MG Cap PO SCH ×3 (08:15→20:06)
[2023-08-27] MEDS: Calcium Carbonate/Vitamin D3 1500 MG-400 Units Tab PO SCH ×2 (08:15→20:06)
[2023-08-27] MEDS: Chlorthalidone 25 MG Tab PO SCH (08:15)
[2023-08-27] MEDS: Aspirin 81 MG Tab.EC PO SCH (08:15)
[2023-08-27] MEDS: metFORMIN 500 MG Tab PO SCH ×2 (08:15→17:06)
[2023-08-27] MEDS: Multivitamins with Iron/Calcium/Folic Acid/Minerals Tab PO SCH (08:16)
[2023-08-27] MEDS: Pregabalin 75 MG Cap PO SCH ×2 (08:16→20:06)
[2023-08-27] MEDS: Magnesium Oxide 400 MG Tab PO SCH (08:16)
[2023-08-27] MEDS: Polyethylene Glycol 3350 Powder 17 GM Packet PO SCH (08:16)
[2023-08-27] MEDS: Metoprolol Succinate 50 MG Tab.ER PO SCH (08:16)
[2023-08-27] MEDS: Sennosides/Docusate Sodium 50-8.6 MG Tab PO SCH ×2 (08:16→20:06)
[2023-08-27] MEDS: Acetaminophen/HYDROcodone 325-5 MG Tab PO PRN (08:17)
[2023-08-27] MEDS: Ascorbic Acid 500 MG Tab PO SCH (08:17)
[2023-08-27] MEDS: Tamsulosin 0.4 MG Cap.ER PO SCH (20:05)
[2023-08-27] MEDS: atorvaSTATin 40 MG Tab PO SCH (20:05)
[2023-08-27] MEDS: rOPINIRole 1 MG Tab PO SCH (20:05)
[2023-08-27] MEDS: Insulin Glargine,Human Rec. Analog 100 Units/ML 3 ML Pen SUBCUT SCH (20:06)
[2023-08-28] MEDS: Amoxicillin 500 MG Cap PO SCH ×2 (08:05→13:52)
[2023-08-28] MEDS: Lactobacillus Acidophilus/Lactobacillus Sporogenes (Probiotic) Tab PO SCH (08:05)
[2023-08-28] MEDS: Aspirin 81 MG Tab.EC PO SCH (08:06)
[2023-08-28] MEDS: Chlorthalidone 25 MG Tab PO SCH (08:06)
[2023-08-28] MEDS: Calcium Carbonate/Vitamin D3 1500 MG-400 Units Tab PO SCH ×2 (08:06→20:18)
[2023-08-28] MEDS: metFORMIN 500 MG Tab PO SCH ×2 (08:06→17:37)
[2023-08-28] MEDS: Magnesium Oxide 400 MG Tab PO SCH (08:07)
[2023-08-28] MEDS: Metoprolol Succinate 50 MG Tab.ER PO SCH (08:07)
[2023-08-28] MEDS: Sennosides/Docusate Sodium 50-8.6 MG Tab PO SCH ×2 (08:07→20:17)
[2023-08-28] MEDS: Multivitamins with Iron/Calcium/Folic Acid/Minerals Tab PO SCH (08:07)
[2023-08-28] MEDS: Polyethylene Glycol 3350 Powder 17 GM Packet PO SCH (08:07)
[2023-08-28] MEDS: Pregabalin 75 MG Cap PO SCH ×2 (08:07→20:18)
[2023-08-28] MEDS: Ascorbic Acid 500 MG Tab PO SCH (08:07)
[2023-08-28] MEDS: Acetaminophen/HYDROcodone 325-5 MG Tab PO PRN (08:08)
[2023-08-28 10:55] LABS: HEMATOCRIT 25.9 % (40.0-54.0); HEMOGLOBIN 8.1 g/dL (13.0-18.0); MEAN CORPUSCULAR HEMOGLOBIN 24.2 pg (27.0-32.0); MEAN CORPUSCULAR HGB CONC 31.3 g/dL (31.0-35.0); MEAN CORPUSCULAR VOLUME 77 fL (76-96); PLATELET COUNT,PLT 167 K/uL (150-400); RED BLOOD CELL COUNT 3.35 M/uL (4.50-6.50); RED CELL DISTRIBUTION WIDTH 26.7 % (11.0-16.0); WHITE BLOOD CELL COUNT,WBC 5.2 K/uL (4.0-11.0)
[2023-08-28 11:39] LABS: ANISOCYTOSIS FEW
[2023-08-28 11:40] LABS: ELLIPTOCYTES FEW; HYPOCHROMASIA MODERATE; POIKILOCYTOSIS FEW
[2023-08-28 11:41] LABS: SCHISTOCYTES OCCASIONAL; TARGET CELLS OCCASIONAL
[2023-08-28 11:42] LABS: ACANTHOCYTES FEW; STOMATOCYTES RARE
[2023-08-28 11:43] LABS: PLATELET COUNT ESTIMATE ADEQUATE
[2023-08-28] MEDS: Tamsulosin 0.4 MG Cap.ER PO SCH (20:17)
[2023-08-28] MEDS: atorvaSTATin 40 MG Tab PO SCH (20:17)
[2023-08-28] MEDS: Insulin Glargine,Human Rec. Analog 100 Units/ML 3 ML Pen SUBCUT SCH (20:18)
[2023-08-28] MEDS: rOPINIRole 1 MG Tab PO SCH (20:18)
[2023-08-29] MEDS: Multivitamins with Iron/Calcium/Folic Acid/Minerals Tab PO SCH (08:00)
[2023-08-29] MEDS: metFORMIN 500 MG Tab PO SCH ×2 (08:00→17:36)
[2023-08-29] MEDS: Aspirin 81 MG Tab.EC PO SCH (08:00)
[2023-08-29] MEDS: Magnesium Oxide 400 MG Tab PO SCH (08:01)
[2023-08-29] MEDS: Chlorthalidone 25 MG Tab PO SCH (08:01)
[2023-08-29] MEDS: Sennosides/Docusate Sodium 50-8.6 MG Tab PO SCH ×2 (08:01→20:57)
[2023-08-29] MEDS: Pregabalin 75 MG Cap PO SCH ×2 (08:02→20:57)
[2023-08-29] MEDS: Lactobacillus Acidophilus/Lactobacillus Sporogenes (Probiotic) Tab PO SCH (08:02)
[2023-08-29] MEDS: Ascorbic Acid 500 MG Tab PO SCH (08:02)
[2023-08-29] MEDS: Metoprolol Succinate 50 MG Tab.ER PO SCH (08:03)
[2023-08-29] MEDS: Polyethylene Glycol 3350 Powder 17 GM Packet PO SCH (08:03)
[2023-08-29] MEDS: Calcium Carbonate/Vitamin D3 1500 MG-400 Units Tab PO SCH ×2 (08:03→20:58)
[2023-08-29] MEDS: Acetaminophen/HYDROcodone 325-5 MG Tab PO PRN (20:50)
[2023-08-29] MEDS: atorvaSTATin 40 MG Tab PO SCH (20:57)
[2023-08-29] MEDS: rOPINIRole 1 MG Tab PO SCH (20:57)
[2023-08-29] MEDS: Insulin Glargine,Human Rec. Analog 100 Units/ML 3 ML Pen SUBCUT SCH (20:58)
[2023-08-29] MEDS: Tamsulosin 0.4 MG Cap.ER PO SCH (20:58)
[2023-08-29] MEDS: SODIUM HYPOCHLORITE 0.25% TOP PRN (22:10)
[2023-08-30] MEDS: SODIUM HYPOCHLORITE 0.25% TOP PRN ×3 (06:00→22:48)
[2023-08-30] MEDS: Multivitamins with Iron/Calcium/Folic Acid/Minerals Tab PO SCH (08:00)
[2023-08-30] MEDS: metFORMIN 500 MG Tab PO SCH ×2 (08:00→17:01)
[2023-08-30] MEDS: Acetaminophen/HYDROcodone 325-5 MG Tab PO PRN ×2 (08:00→21:30)
[2023-08-30] MEDS: Magnesium Oxide 400 MG Tab PO SCH (08:01)
[2023-08-30] MEDS: Pregabalin 75 MG Cap PO SCH ×2 (08:01→20:00)
[2023-08-30] MEDS: Ascorbic Acid 500 MG Tab PO SCH (08:01)
[2023-08-30] MEDS: Sennosides/Docusate Sodium 50-8.6 MG Tab PO SCH ×2 (08:01→20:00)
[2023-08-30] MEDS: Lactobacillus Acidophilus/Lactobacillus Sporogenes (Probiotic) Tab PO SCH (08:01)
[2023-08-30] MEDS: Chlorthalidone 25 MG Tab PO SCH (08:02)
[2023-08-30] MEDS: Aspirin 81 MG Tab.EC PO SCH (08:02)
[2023-08-30] MEDS: Calcium Carbonate/Vitamin D3 1500 MG-400 Units Tab PO SCH ×2 (08:02→20:00)
[2023-08-30] MEDS: Metoprolol Succinate 50 MG Tab.ER PO SCH (08:03)
[2023-08-30] MEDS: Polyethylene Glycol 3350 Powder 17 GM Packet PO SCH (08:03)
[2023-08-30] MEDS: Tamsulosin 0.4 MG Cap.ER PO SCH (20:00)
[2023-08-30] MEDS: rOPINIRole 1 MG Tab PO SCH (20:00)
[2023-08-30] MEDS: atorvaSTATin 40 MG Tab PO SCH (20:00)
[2023-08-30] MEDS: Insulin Glargine,Human Rec. Analog 100 Units/ML 3 ML Pen SUBCUT SCH (20:03)
[2023-08-31] MEDS: SODIUM HYPOCHLORITE 0.25% TOP PRN ×2 (06:00→21:02)
[2023-08-31] MEDS: Ascorbic Acid 500 MG Tab PO SCH (08:06)
[2023-08-31] MEDS: Lactobacillus Acidophilus/Lactobacillus Sporogenes (Probiotic) Tab PO SCH (08:07)
[2023-08-31] MEDS: Chlorthalidone 25 MG Tab PO SCH (08:07)
[2023-08-31] MEDS: Sennosides/Docusate Sodium 50-8.6 MG Tab PO SCH ×2 (08:07→20:55)
[2023-08-31] MEDS: Aspirin 81 MG Tab.EC PO SCH (08:07)
[2023-08-31] MEDS: Magnesium Oxide 400 MG Tab PO SCH (08:07)
[2023-08-31] MEDS: metFORMIN 500 MG Tab PO SCH ×2 (08:07→17:11)
[2023-08-31] MEDS: Pregabalin 75 MG Cap PO SCH ×2 (08:07→20:55)
[2023-08-31] MEDS: Calcium Carbonate/Vitamin D3 1500 MG-400 Units Tab PO SCH ×2 (08:07→20:57)
[2023-08-31] MEDS: Metoprolol Succinate 50 MG Tab.ER PO SCH (08:08)
[2023-08-31] MEDS: Multivitamins with Iron/Calcium/Folic Acid/Minerals Tab PO SCH (08:08)
[2023-08-31] MEDS: Polyethylene Glycol 3350 Powder 17 GM Packet PO SCH (08:09)
[2023-08-31] MEDS: atorvaSTATin 40 MG Tab PO SCH (20:55)
[2023-08-31] MEDS: Tamsulosin 0.4 MG Cap.ER PO SCH (20:55)
[2023-08-31] MEDS: Acetaminophen/HYDROcodone 325-5 MG Tab PO PRN (20:56)
[2023-08-31] MEDS: Insulin Glargine,Human Rec. Analog 100 Units/ML 3 ML Pen SUBCUT SCH (20:57)
[2023-08-31] MEDS: rOPINIRole 1 MG Tab PO SCH (20:57)
[2023-09-01] MEDS: Magnesium Oxide 400 MG Tab PO SCH (09:03)
[2023-09-01] MEDS: Aspirin 81 MG Tab.EC PO SCH (09:03)
[2023-09-01] MEDS: Polyethylene Glycol 3350 Powder 17 GM Packet PO SCH (09:03)
[2023-09-01] MEDS: Metoprolol Succinate 50 MG Tab.ER PO SCH (09:04)
[2023-09-01] MEDS: metFORMIN 500 MG Tab PO SCH ×2 (09:05→16:48)
[2023-09-01] MEDS: Sennosides/Docusate Sodium 50-8.6 MG Tab PO SCH ×2 (09:05→20:55)
[2023-09-01] MEDS: Ascorbic Acid 500 MG Tab PO SCH (09:05)
[2023-09-01] MEDS: Lactobacillus Acidophilus/Lactobacillus Sporogenes (Probiotic) Tab PO SCH (09:06)
[2023-09-01] MEDS: Chlorthalidone 25 MG Tab PO SCH (09:06)
[2023-09-01] MEDS: Pregabalin 75 MG Cap PO SCH ×2 (09:06→20:55)
[2023-09-01] MEDS: Calcium Carbonate/Vitamin D3 1500 MG-400 Units Tab PO SCH ×2 (09:06→20:55)
[2023-09-01] MEDS: Multivitamins with Iron/Calcium/Folic Acid/Minerals Tab PO SCH (09:07)
[2023-09-01] MEDS: Cyanocobalamin (Vitamin B12) 1,000 MCG/ML SDV IM SCH (09:13)
[2023-09-01] MEDS: Acetaminophen/HYDROcodone 325-5 MG Tab PO PRN ×2 (10:05→20:56)
[2023-09-01] MEDS: Insulin Glargine,Human Rec. Analog 100 Units/ML 3 ML Pen SUBCUT SCH (20:54)
[2023-09-01] MEDS: Tamsulosin 0.4 MG Cap.ER PO SCH (20:55)
[2023-09-01] MEDS: atorvaSTATin 40 MG Tab PO SCH (20:56)
[2023-09-01] MEDS: rOPINIRole 1 MG Tab PO SCH (20:56)
[2023-09-01] MEDS: SODIUM HYPOCHLORITE 0.25% TOP PRN (21:00)
[2023-09-02] MEDS: Polyethylene Glycol 3350 Powder 17 GM Packet PO SCH (08:16)
[2023-09-02] MEDS: metFORMIN 500 MG Tab PO SCH ×2 (08:16→17:08)
[2023-09-02] MEDS: Calcium Carbonate/Vitamin D3 1500 MG-400 Units Tab PO SCH ×2 (08:16→20:53)
[2023-09-02] MEDS: Chlorthalidone 25 MG Tab PO SCH (08:16)
[2023-09-02] MEDS: Pregabalin 75 MG Cap PO SCH ×2 (08:17→20:52)
[2023-09-02] MEDS: Acetaminophen/HYDROcodone 325-5 MG Tab PO PRN ×2 (08:17→20:52)
[2023-09-02] MEDS: Lactobacillus Acidophilus/Lactobacillus Sporogenes (Probiotic) Tab PO SCH (08:17)
[2023-09-02] MEDS: Aspirin 81 MG Tab.EC PO SCH (08:17)
[2023-09-02] MEDS: Sennosides/Docusate Sodium 50-8.6 MG Tab PO SCH ×2 (08:17→20:52)
[2023-09-02] MEDS: Magnesium Oxide 400 MG Tab PO SCH (08:17)
[2023-09-02] MEDS: Multivitamins with Iron/Calcium/Folic Acid/Minerals Tab PO SCH (08:17)
[2023-09-02] MEDS: Metoprolol Succinate 50 MG Tab.ER PO SCH (08:18)
[2023-09-02] MEDS: Ascorbic Acid 500 MG Tab PO SCH (08:18)
[2023-09-02 10:40] LABS: BASOPHILS ABSOLUTE AUTO 0.32 K/uL (0.02-0.10); BASOPHILS PERCENT AUTO 4.5 % (0.0-0.5); EOSINOPHILS ABSOLUTE AUTO 0.04 K/uL (0.04-0.40); EOSINOPHILS PERCENT AUTO 0.6 % (1.0-5.0); HEMOGLOBIN 8.3 g/dL (13.0-18.0); LYMPHOCYTES ABSOLUTE AUTO 1.25 K/uL (1.50-4.00); LYMPHOCYTES PERCENT AUTO 17.7 % (20.0-40.0); MEAN CORPUSCULAR HEMOGLOBIN 23.8 pg (27.0-32.0); MEAN CORPUSCULAR HGB CONC 30.7 g/dL (31.0-35.0); MEAN CORPUSCULAR VOLUME 77 fL (76-96); MONOCYTES ABSOLUTE AUTO 0.32 K/uL (0.20-0.80); MONOCYTES PERCENT AUTO 4.5 % (3.0-10.0); NEUTROPHILS ABSOLUTE AUTO 5.12 K/uL (2.00-7.50); NEUTROPHILS PERCENT AUTO 72.7 % (45.0-70.0); PLATELET COUNT,PLT 194 K/uL (150-400); RED BLOOD CELL COUNT 3.49 M/uL (4.50-6.50); RED CELL DISTRIBUTION WIDTH 26.8 % (11.0-16.0); WHITE BLOOD CELL COUNT,WBC 7.1 K/uL (4.0-11.0)
[2023-09-02 10:49] LABS: APPEARANCE,URINE TURBID (CLEAR); BILIRUBIN,URINE NEGATIVE (NEGATIVE); COLOR,URINE YELLOW; GLUCOSE,URINE NEGATIVE (NEGATIVE); KETONES,URINE NEGATIVE (NEGATIVE); LEUKOCYTE ESTERASE,URINE LARGE (NEGATIVE); NITRITE,URINE NEGATIVE (NEGATIVE); OCCULT BLOOD,URINE LARGE (NEGATIVE); PH,URINE 8.5 (5.0-8.0); PROTEIN,URINE 100 mg/dL (NEGATIVE); UROBILINOGEN,URINE 0.2 E.U./dL (0.2-1.0)
[2023-09-02 10:58] LABS: BACTERIA,URINE MANY /HPF; SQUAMOUS EPITHELIAL CELLS,UR OCCASIONAL /HPF; WBC,URINE >100 /HPF
[2023-09-02 11:06] LABS: A/G RATIO 0.4 (0.8-2.0); ALBUMIN 2.1 g/dL (3.4-5.0); ANION GAP 12.3 mmol/L (5.0-15.0); BILIRUBIN TOTAL 0.4 mg/dL (0.0-1.0); BUN/CREATININE RATIO 23.6 (6-25); CALCIUM 8.9 mg/dL (8.5-10.1); CARBON DIOXIDE,CO2 29.9 mmol/L (21.0-32.0); CREATININE 1.48 mg/dL (0.70-1.30); EST CRCL DRUG DOSING (CG) 52.45 mL/min; POTASSIUM,K 4.2 mmol/L (3.5-5.1); PROTEIN TOTAL,TP 7.7 g/dL (6.4-8.2)
[2023-09-02] MEDS: rOPINIRole 1 MG Tab PO SCH (20:51)
[2023-09-02] MEDS: Tamsulosin 0.4 MG Cap.ER PO SCH (20:51)
[2023-09-02] MEDS: atorvaSTATin 40 MG Tab PO SCH (20:52)
[2023-09-02] MEDS: Insulin Glargine,Human Rec. Analog 100 Units/ML 3 ML Pen SUBCUT SCH (20:53)
[2023-09-03] MEDS: Magnesium Oxide 400 MG Tab PO SCH ×2 (05:53→15:11)
[2023-09-03] MEDS: Lactobacillus Acidophilus/Lactobacillus Sporogenes (Probiotic) Tab PO SCH ×2 (05:54→15:09)
[2023-09-03] MEDS: Sennosides/Docusate Sodium 50-8.6 MG Tab PO SCH ×3 (05:54→20:56)
[2023-09-03] MEDS: Pregabalin 75 MG Cap PO SCH ×3 (05:54→20:57)
[2023-09-03] MEDS: Ascorbic Acid 500 MG Tab PO SCH ×2 (05:54→15:12)
[2023-09-03] MEDS: Multivitamins with Iron/Calcium/Folic Acid/Minerals Tab PO SCH ×2 (05:54→15:12)
[2023-09-03] MEDS: Chlorthalidone 25 MG Tab PO SCH ×2 (05:55→15:10)
[2023-09-03] MEDS: Calcium Carbonate/Vitamin D3 1500 MG-400 Units Tab PO SCH ×3 (05:55→20:56)
[2023-09-03] MEDS: Aspirin 81 MG Tab.EC PO SCH ×2 (05:55→15:11)
[2023-09-03] MEDS: Metoprolol Succinate 50 MG Tab.ER PO SCH ×2 (05:55→15:12)
[2023-09-03] MEDS: metFORMIN 500 MG Tab PO SCH ×3 (05:58→17:26)
[2023-09-03] MEDS: Polyethylene Glycol 3350 Powder 17 GM Packet PO SCH ×2 (06:02→15:11)
[2023-09-03] MEDS: HYDROmorphone 2 MG/ML Syringe SUBCUT PRN ×2 (06:36→14:57)
[2023-09-03] MEDS: atorvaSTATin 40 MG Tab PO SCH (20:56)
[2023-09-03] MEDS: Insulin Glargine,Human Rec. Analog 100 Units/ML 3 ML Pen SUBCUT SCH (20:57)
[2023-09-03] MEDS: Tamsulosin 0.4 MG Cap.ER PO SCH (20:57)
[2023-09-03] MEDS: rOPINIRole 1 MG Tab PO SCH (20:57)
[2023-09-03] MEDS: Acetaminophen/HYDROcodone 325-5 MG Tab PO PRN (21:04)
[2023-09-04] MEDS: Aspirin 81 MG Tab.EC PO SCH (08:15)
[2023-09-04] MEDS: metFORMIN 500 MG Tab PO SCH ×2 (08:15→17:07)
[2023-09-04] MEDS: Polyethylene Glycol 3350 Powder 17 GM Packet PO SCH (08:15)
[2023-09-04] MEDS: Multivitamins with Iron/Calcium/Folic Acid/Minerals Tab PO SCH (08:15)
[2023-09-04] MEDS: Magnesium Oxide 400 MG Tab PO SCH (08:15)
[2023-09-04] MEDS: Pregabalin 75 MG Cap PO SCH ×2 (08:15→19:49)
[2023-09-04] MEDS: Calcium Carbonate/Vitamin D3 1500 MG-400 Units Tab PO SCH ×2 (08:15→19:50)
[2023-09-04] MEDS: Chlorthalidone 25 MG Tab PO SCH (08:15)
[2023-09-04] MEDS: Metoprolol Succinate 50 MG Tab.ER PO SCH (08:15)
[2023-09-04] MEDS: Ascorbic Acid 500 MG Tab PO SCH (08:16)
[2023-09-04] MEDS: Lactobacillus Acidophilus/Lactobacillus Sporogenes (Probiotic) Tab PO SCH (08:16)
[2023-09-04] MEDS: Sennosides/Docusate Sodium 50-8.6 MG Tab PO SCH ×2 (08:16→19:48)
[2023-09-04] MEDS: Acetaminophen/HYDROcodone 325-5 MG Tab PO PRN ×2 (09:44→20:49)
[2023-09-04] MEDS: Tamsulosin 0.4 MG Cap.ER PO SCH (19:48)
[2023-09-04] MEDS: rOPINIRole 1 MG Tab PO SCH (19:49)
[2023-09-04] MEDS: atorvaSTATin 40 MG Tab PO SCH (19:50)
[2023-09-04] MEDS: Insulin Glargine,Human Rec. Analog 100 Units/ML 3 ML Pen SUBCUT SCH (19:50)
[2023-09-05] MEDS: Sennosides/Docusate Sodium 50-8.6 MG Tab PO SCH ×2 (08:09→20:31)
[2023-09-05] MEDS: Metoprolol Succinate 50 MG Tab.ER PO SCH (08:09)
[2023-09-05] MEDS: Multivitamins with Iron/Calcium/Folic Acid/Minerals Tab PO SCH (08:09)
[2023-09-05] MEDS: Magnesium Oxide 400 MG Tab PO SCH (08:09)
[2023-09-05] MEDS: Lactobacillus Acidophilus/Lactobacillus Sporogenes (Probiotic) Tab PO SCH (08:09)
[2023-09-05] MEDS: Ascorbic Acid 500 MG Tab PO SCH (08:09)
[2023-09-05] MEDS: Aspirin 81 MG Tab.EC PO SCH (08:09)
[2023-09-05] MEDS: Calcium Carbonate/Vitamin D3 1500 MG-400 Units Tab PO SCH ×2 (08:09→20:31)
[2023-09-05] MEDS: Chlorthalidone 25 MG Tab PO SCH (08:09)
[2023-09-05] MEDS: metFORMIN 500 MG Tab PO SCH ×2 (08:09→17:13)
[2023-09-05] MEDS: Polyethylene Glycol 3350 Powder 17 GM Packet PO SCH (08:09)
[2023-09-05] MEDS: Pregabalin 75 MG Cap PO SCH ×2 (08:10→20:31)
[2023-09-05] MEDS: Acetaminophen/HYDROcodone 325-5 MG Tab PO PRN ×2 (10:30→20:30)
[2023-09-05] MEDS: JUVEN PO SCH (17:13)
[2023-09-05] MEDS: rOPINIRole 1 MG Tab PO SCH (20:31)
[2023-09-05] MEDS: Tamsulosin 0.4 MG Cap.ER PO SCH (20:31)
[2023-09-05] MEDS: Insulin Glargine,Human Rec. Analog 100 Units/ML 3 ML Pen SUBCUT SCH (20:31)
[2023-09-05] MEDS: atorvaSTATin 40 MG Tab PO SCH (20:31)
[2023-09-06] MEDS: Calcium Carbonate/Vitamin D3 1500 MG-400 Units Tab PO SCH ×2 (07:47→19:50)
[2023-09-06] MEDS: Lactobacillus Acidophilus/Lactobacillus Sporogenes (Probiotic) Tab PO SCH (07:47)
[2023-09-06] MEDS: Chlorthalidone 25 MG Tab PO SCH (07:48)
[2023-09-06] MEDS: metFORMIN 500 MG Tab PO SCH ×2 (07:48→16:57)
[2023-09-06] MEDS: Aspirin 81 MG Tab.EC PO SCH (07:48)
[2023-09-06] MEDS: Polyethylene Glycol 3350 Powder 17 GM Packet PO SCH (07:48)
[2023-09-06] MEDS: Magnesium Oxide 400 MG Tab PO SCH (07:48)
[2023-09-06] MEDS: Pregabalin 75 MG Cap PO SCH ×2 (07:48→19:50)
[2023-09-06] MEDS: Multivitamins with Iron/Calcium/Folic Acid/Minerals Tab PO SCH (07:49)
[2023-09-06] MEDS: Ascorbic Acid 500 MG Tab PO SCH (07:49)
[2023-09-06] MEDS: Metoprolol Succinate 50 MG Tab.ER PO SCH (07:49)
[2023-09-06] MEDS: JUVEN PO SCH ×2 (07:49→19:48)
[2023-09-06] MEDS: Sennosides/Docusate Sodium 50-8.6 MG Tab PO SCH ×2 (07:49→19:49)
[2023-09-06] MEDS: Acetaminophen/HYDROcodone 325-5 MG Tab PO PRN (12:54)
[2023-09-06] MEDS: Ciprofloxacin 500 MG Tab PO SCH ×2 (14:34→19:50)
[2023-09-06] MEDS: rOPINIRole 1 MG Tab PO SCH (19:49)
[2023-09-06] MEDS: atorvaSTATin 40 MG Tab PO SCH (19:49)
[2023-09-06] MEDS: Insulin Glargine,Human Rec. Analog 100 Units/ML 3 ML Pen SUBCUT SCH (19:50)
[2023-09-06] MEDS: Tamsulosin 0.4 MG Cap.ER PO SCH (19:50)
[2023-09-07] MEDS: Aspirin 81 MG Tab.EC PO SCH (08:06)
[2023-09-07] MEDS: metFORMIN 500 MG Tab PO SCH ×2 (08:06→17:10)
[2023-09-07] MEDS: Ciprofloxacin 500 MG Tab PO SCH ×2 (08:07→20:31)
[2023-09-07] MEDS: Ascorbic Acid 500 MG Tab PO SCH (08:07)
[2023-09-07] MEDS: Multivitamin Tab PO SCH (08:08)
[2023-09-07] MEDS: Lactobacillus Acidophilus/Lactobacillus Sporogenes (Probiotic) Tab PO SCH (08:08)
[2023-09-07] MEDS: Magnesium Oxide 400 MG Tab PO SCH (08:08)
[2023-09-07] MEDS: Calcium Carbonate/Vitamin D3 1500 MG-400 Units Tab PO SCH ×2 (08:09→20:31)
[2023-09-07] MEDS: Sennosides/Docusate Sodium 50-8.6 MG Tab PO SCH ×2 (08:09→20:31)
[2023-09-07] MEDS: Pregabalin 75 MG Cap PO SCH ×2 (08:09→20:32)
[2023-09-07] MEDS: Polyethylene Glycol 3350 Powder 17 GM Packet PO SCH (08:10)
[2023-09-07] MEDS: JUVEN PO SCH ×2 (08:12→17:10)
[2023-09-07] MEDS: Metoprolol Succinate 50 MG Tab.ER PO SCH (08:46)
[2023-09-07] MEDS: Chlorthalidone 25 MG Tab PO SCH (08:48)
[2023-09-07] MEDS: Tamsulosin 0.4 MG Cap.ER PO SCH (20:31)
[2023-09-07] MEDS: rOPINIRole 1 MG Tab PO SCH (20:31)
[2023-09-07] MEDS: Acetaminophen/HYDROcodone 325-5 MG Tab PO PRN (20:32)
[2023-09-07] MEDS: atorvaSTATin 40 MG Tab PO SCH (20:32)
[2023-09-07] MEDS: Insulin Glargine,Human Rec. Analog 100 Units/ML 3 ML Pen SUBCUT SCH (20:33)
[2023-09-08] MEDS: Pregabalin 75 MG Cap PO SCH ×2 (08:23→19:36)
[2023-09-08] MEDS: Magnesium Oxide 400 MG Tab PO SCH (08:23)
[2023-09-08] MEDS: Aspirin 81 MG Tab.EC PO SCH (08:23)
[2023-09-08] MEDS: Ascorbic Acid 500 MG Tab PO SCH (08:23)
[2023-09-08] MEDS: Chlorthalidone 25 MG Tab PO SCH (08:24)
[2023-09-08] MEDS: Metoprolol Succinate 50 MG Tab.ER PO SCH (08:24)
[2023-09-08] MEDS: Sennosides/Docusate Sodium 50-8.6 MG Tab PO SCH ×2 (08:24→19:35)
[2023-09-08] MEDS: metFORMIN 500 MG Tab PO SCH ×2 (08:24→17:11)
[2023-09-08] MEDS: Multivitamin Tab PO SCH (08:28)
[2023-09-08] MEDS: Calcium Carbonate/Vitamin D3 1500 MG-400 Units Tab PO SCH ×2 (08:28→19:35)
[2023-09-08] MEDS: Ciprofloxacin 500 MG Tab PO SCH ×2 (08:28→19:35)
[2023-09-08] MEDS: Lactobacillus Acidophilus/Lactobacillus Sporogenes (Probiotic) Tab PO SCH (08:29)
[2023-09-08] MEDS: JUVEN PO SCH ×2 (08:29→17:11)
[2023-09-08] MEDS: Polyethylene Glycol 3350 Powder 17 GM Packet PO SCH (08:30)
[2023-09-08] MEDS: Acetaminophen/HYDROcodone 325-5 MG Tab PO PRN (08:32)
[2023-09-08] MEDS: SODIUM HYPOCHLORITE 0.25% TOP PRN (10:00)
[2023-09-08] MEDS: rOPINIRole 1 MG Tab PO SCH (19:34)
[2023-09-08] MEDS: atorvaSTATin 40 MG Tab PO SCH (19:34)
[2023-09-08] MEDS: Tamsulosin 0.4 MG Cap.ER PO SCH (19:35)
[2023-09-08] MEDS: Insulin Glargine,Human Rec. Analog 100 Units/ML 3 ML Pen SUBCUT SCH (19:37)
[2023-09-09] MEDS: Magnesium Oxide 400 MG Tab PO SCH (08:06)
[2023-09-09] MEDS: Metoprolol Succinate 50 MG Tab.ER PO SCH (08:06)
[2023-09-09] MEDS: JUVEN PO SCH ×2 (08:06→17:16)
[2023-09-09] MEDS: Polyethylene Glycol 3350 Powder 17 GM Packet PO SCH (08:06)
[2023-09-09] MEDS: Ascorbic Acid 500 MG Tab PO SCH (08:06)
[2023-09-09] MEDS: Chlorthalidone 25 MG Tab PO SCH (08:07)
[2023-09-09] MEDS: metFORMIN 500 MG Tab PO SCH ×2 (08:07→17:16)
[2023-09-09] MEDS: Lactobacillus Acidophilus/Lactobacillus Sporogenes (Probiotic) Tab PO SCH (08:07)
[2023-09-09] MEDS: Ciprofloxacin 500 MG Tab PO SCH ×2 (08:07→22:56)
[2023-09-09] MEDS: Multivitamin Tab PO SCH (08:07)
[2023-09-09] MEDS: Calcium Carbonate/Vitamin D3 1500 MG-400 Units Tab PO SCH ×2 (08:07→22:07)
[2023-09-09] MEDS: Sennosides/Docusate Sodium 50-8.6 MG Tab PO SCH ×2 (08:07→22:08)
[2023-09-09] MEDS: Aspirin 81 MG Tab.EC PO SCH (08:07)
[2023-09-09] MEDS: Pregabalin 75 MG Cap PO SCH ×2 (08:07→22:07)
[2023-09-09] MEDS: Acetaminophen/HYDROcodone 325-5 MG Tab PO PRN (09:38)
[2023-09-09] MEDS: Tamsulosin 0.4 MG Cap.ER PO SCH (22:07)
[2023-09-09] MEDS: rOPINIRole 1 MG Tab PO SCH (22:08)
[2023-09-09] MEDS: atorvaSTATin 40 MG Tab PO SCH (22:08)
[2023-09-09] MEDS: Insulin Glargine,Human Rec. Analog 100 Units/ML 3 ML Pen SUBCUT SCH (22:10)
[2023-09-10] MEDS: Polyethylene Glycol 3350 Powder 17 GM Packet PO SCH (08:30)
[2023-09-10] MEDS: Metoprolol Succinate 50 MG Tab.ER PO SCH (08:31)
[2023-09-10] MEDS: Ascorbic Acid 500 MG Tab PO SCH (08:31)
[2023-09-10] MEDS: Pregabalin 75 MG Cap PO SCH ×2 (08:31→20:59)
[2023-09-10] MEDS: Ciprofloxacin 500 MG Tab PO SCH ×2 (08:31→20:58)
[2023-09-10] MEDS: Chlorthalidone 25 MG Tab PO SCH (08:32)
[2023-09-10] MEDS: Magnesium Oxide 400 MG Tab PO SCH (08:32)
[2023-09-10] MEDS: Lactobacillus Acidophilus/Lactobacillus Sporogenes (Probiotic) Tab PO SCH (08:32)
[2023-09-10] MEDS: Multivitamin Tab PO SCH (08:32)
[2023-09-10] MEDS: Sennosides/Docusate Sodium 50-8.6 MG Tab PO SCH ×2 (08:32→20:57)
[2023-09-10] MEDS: Calcium Carbonate/Vitamin D3 1500 MG-400 Units Tab PO SCH ×2 (08:33→20:58)
[2023-09-10] MEDS: Aspirin 81 MG Tab.EC PO SCH (08:33)
[2023-09-10] MEDS: metFORMIN 500 MG Tab PO SCH ×2 (08:33→17:09)
[2023-09-10] MEDS: JUVEN PO SCH ×2 (08:37→17:08)
[2023-09-10] MEDS: Acetaminophen/HYDROcodone 325-5 MG Tab PO PRN (17:09)
[2023-09-10] MEDS: Tamsulosin 0.4 MG Cap.ER PO SCH (20:57)
[2023-09-10] MEDS: rOPINIRole 1 MG Tab PO SCH (20:57)
[2023-09-10] MEDS: atorvaSTATin 40 MG Tab PO SCH (20:58)
[2023-09-10] MEDS: Insulin Glargine,Human Rec. Analog 100 Units/ML 3 ML Pen SUBCUT SCH (21:00)
[2023-09-11] MEDS: Ciprofloxacin 500 MG Tab PO SCH (08:22)
[2023-09-11] MEDS: Calcium Carbonate/Vitamin D3 1500 MG-400 Units Tab PO SCH ×2 (08:22→19:52)
[2023-09-11] MEDS: Lactobacillus Acidophilus/Lactobacillus Sporogenes (Probiotic) Tab PO SCH (08:22)
[2023-09-11] MEDS: Multivitamin Tab PO SCH (08:23)
[2023-09-11] MEDS: metFORMIN 500 MG Tab PO SCH ×2 (08:23→18:21)
[2023-09-11] MEDS: Polyethylene Glycol 3350 Powder 17 GM Packet PO SCH (08:23)
[2023-09-11] MEDS: JUVEN PO SCH ×2 (08:23→18:21)
[2023-09-11] MEDS: Sennosides/Docusate Sodium 50-8.6 MG Tab PO SCH ×2 (08:23→19:53)
[2023-09-11] MEDS: Aspirin 81 MG Tab.EC PO SCH (08:23)
[2023-09-11] MEDS: Ascorbic Acid 500 MG Tab PO SCH (08:23)
[2023-09-11] MEDS: Magnesium Oxide 400 MG Tab PO SCH (08:23)
[2023-09-11] MEDS: Pregabalin 75 MG Cap PO SCH ×2 (08:23→19:52)
[2023-09-11] MEDS: Chlorthalidone 25 MG Tab PO SCH (08:24)
[2023-09-11] MEDS: Metoprolol Succinate 50 MG Tab.ER PO SCH (08:26)
[2023-09-11] MEDS: Acetaminophen/HYDROcodone 325-5 MG Tab PO PRN (10:20)
[2023-09-11] MEDS: rOPINIRole 1 MG Tab PO SCH (19:52)
[2023-09-11] MEDS: Insulin Glargine,Human Rec. Analog 100 Units/ML 3 ML Pen SUBCUT SCH (19:53)
[2023-09-11] MEDS: Tamsulosin 0.4 MG Cap.ER PO SCH (19:53)
[2023-09-11] MEDS: atorvaSTATin 40 MG Tab PO SCH (19:53)
[2023-09-12] MEDS: Polyethylene Glycol 3350 Powder 17 GM Packet PO SCH (07:30)
[2023-09-12] MEDS: JUVEN PO SCH (07:30)
[2023-09-12] MEDS: Metoprolol Succinate 50 MG Tab.ER PO SCH (07:31)
[2023-09-12] MEDS: Aspirin 81 MG Tab.EC PO SCH (07:31)
[2023-09-12] MEDS: Acetaminophen/HYDROcodone 325-5 MG Tab PO PRN (07:31)
[2023-09-12] MEDS: Chlorthalidone 25 MG Tab PO SCH (07:31)
[2023-09-12] MEDS: metFORMIN 500 MG Tab PO SCH (07:31)
[2023-09-12] MEDS: Ascorbic Acid 500 MG Tab PO SCH (07:32)
[2023-09-12] MEDS: Sennosides/Docusate Sodium 50-8.6 MG Tab PO SCH (07:32)
[2023-09-12] MEDS: Lactobacillus Acidophilus/Lactobacillus Sporogenes (Probiotic) Tab PO SCH (07:32)
[2023-09-12] MEDS: Pregabalin 75 MG Cap PO SCH (07:32)
[2023-09-12] MEDS: Magnesium Oxide 400 MG Tab PO SCH (07:32)
[2023-09-12] MEDS: Calcium Carbonate/Vitamin D3 1500 MG-400 Units Tab PO SCH (07:32)
[2023-09-12] MEDS: Multivitamin Tab PO SCH (07:32)
== END 2023-09-12 08:15 | DRG 592 ==
LOC: LB.MS 14:00
PROVIDERS: ADMIT Physician Assistant; ATTEND Physician Assistant
PROC: 0T2BX0Z Change Drainage Device in Bladder, External Approach (ICD-10-PCS; 2023-07-22)
PROC: 0HB8XZZ Excision of Buttock Skin, External Approach (ICD-10-PCS; principal; 2023-07-29)
DX: L89.319 Pressure ulcer of right buttock, unspecified stage (principal); M72.6 Necrotizing fasciitis; T83.511A Infection and inflammatory reaction due to indwelling urethral catheter, initial encounter; N39.0 Urinary tract infection, site not specified; R78.81 Bacteremia; L89.159 Pressure ulcer of sacral region, unspecified stage; M19.90 Unspecified osteoarthritis, unspecified site; Z96.653 Presence of artificial knee joint, bilateral; B96.89 Other specified bacterial agents as the cause of diseases classified elsewhere; Z48.89 Encounter for other specified surgical aftercare; R32 Unspecified urinary incontinence; E11.42 Type 2 diabetes mellitus with diabetic polyneuropathy; I25.10 Atherosclerotic heart disease of native coronary artery without angina pectoris; B96.5 Pseudomonas (aeruginosa) (mallei) (pseudomallei) as the cause of diseases classified elsewhere; I10 Essential (primary) hypertension; E78.00 Pure hypercholesterolemia, unspecified; N40.1 Benign prostatic hyperplasia with lower urinary tract symptoms; D64.9 Anemia, unspecified; Z79.899 Other long term (current) drug therapy; Z79.82 Long term (current) use of aspirin; Z79.84 Long term (current) use of oral hypoglycemic drugs; Z85.46 Personal history of malignant neoplasm of prostate; Z95.0 Presence of cardiac pacemaker; Z98.890 Other specified postprocedural states; Z87.891 Personal history of nicotine dependence
CPT/HCPCS: 36415; 51702; 80048; 80053; 81001; 82947; 83605; 85025; 85027; 85651; 86141; 87070; 87075; 87086; 87205; 97110-GO; 97110-GP; 97116-GP; 97162-GP; 97165-GO; 97530-GO; 97530-GP; 97535-GO; 99305; 99308; 99309; 99315; A0425; A0429; A9270-GY; G0008; J1170; J1815-GY; J1885; J3420